=== PATIENT | male | born 1965 | race Caucasian/White ===

== ENCOUNTER 2017-12-24 12:49 | Inpatient (IN) | payer OTHER ==
[2017-12-24 13:53] VITALS: BMI 25.6
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
[2017-12-24] MEDS ORDERED: hydrOXYzine PAMOATE 50 MG CAPSULE (FP) PO PRN (17:16)
[2017-12-24] MEDS ORDERED: MENTHOL/PHENOL 1 EACH UD MM PRN (17:16)
[2017-12-24] MEDS ORDERED: NICOTINE POLACRILEX 2 MG GUM BC PRN (17:16)
[2017-12-24] MEDS ORDERED: MAG HYDROX/AL HYDROX/SIMETH 30 ML UNIT-DOSE CUP PO PRN (17:16)
[2017-12-24] MEDS ORDERED: P-EPHED 60MG/TRIPROLIDI 2.5MG TABLET PO PRN (17:16)
[2017-12-24] MEDS ORDERED: MAGNESIUM CITRATE 300 ML BOTTLE PO PRN (17:16)
[2017-12-24] MEDS ORDERED: guaiFENesin/D-METHORPHAN HB 10 ML UNIT-DOSE CUPS PO PRN (17:16)
[2017-12-24] MEDS ORDERED: chlordiazePOXIDE HCL 25 MG CAPSULE PO ONE (17:16)
[2017-12-24] MEDS ORDERED: chlordiazePOXIDE HCL 25 MG CAPSULE PO PRN (17:16)
[2017-12-24] MEDS ORDERED: IBUPROFEN 400 MG TABLET (FP) PO PRN (17:16)
[2017-12-24] MEDS ORDERED: ACETAMINOPHEN 325 MG TABLET (FP) PO PRN (17:16)
[2017-12-24] MEDS ORDERED: MAGNESIUM HYDROX 2400MG/30ML ORAL SUSPENSION 30 ML CUP PO PRN (17:16)
[2017-12-24] MEDS ORDERED: LOPERAMIDE HCL 2 MG CAPSULE PO PRN (17:16)
[2017-12-24] MEDS ORDERED: ALBUTEROL SO4 2.5/IPRATROPIUM 0.5 INH SOL 3 ML VIAL.NEB. NEB PRN (17:27)
[2017-12-24] MEDS ORDERED: MELATONIN 5 MG TABLETS PO PRN (22:00)
[2017-12-24] MEDS: THIAMINE HCL 100 MG TABLET (FP) PO SCH (22:36)
[2017-12-24] MEDS: ALBUTEROL SO4 18 GM HFA INHALER IH SCH (22:36)
[2017-12-24] MEDS: chlordiazePOXIDE HCL 25 MG CAPSULE PO SCH (22:36)
[2017-12-25 03:32] LABS: URINE APPEARANCE CLEAR; URINE BILIRUBIN NEGATIVE (<2.0 mg/dL); URINE BLOOD 2+ (NEGATIVE); URINE COLOR DKYELLOW; URINE GLUCOSE (UA) NEGATIVE (NEGATIVE); URINE KETONE TRACE (NEGATIVE); URINE LEUK ESTERASE NEGATIVE (NEGATIVE); URINE NITRITE NEGATIVE (NEGATIVE); URINE PROTEIN NEGATIVE (NEGATIVE)
[2017-12-25 03:45] LABS: EPI CELLS RARE /HPF (FEW); URINE HYALINE CAST 7 /lpf; URINE MUCUS MANY
[2017-12-25] MEDS: chlordiazePOXIDE HCL 25 MG CAPSULE PO SCH ×4 (06:06→22:04)
[2017-12-25] MEDS: ALBUTEROL SO4 18 GM HFA INHALER IH SCH ×4 (10:11→22:05)
[2017-12-25] MEDS: NICOTINE 14 MG/24 HOURS TOPICAL PATCH TD SCH (10:11)
[2017-12-25] MEDS: PRENATAL VITAMINS W/ FOLIC ACID TABLET (FP) PO SCH (10:11)
[2017-12-25 11:16] LABS: HEMATOCRIT 46.5 % (35.4-49); MCH 31.3 pg (25.7-33.7); MCHC 34.4 g/dl (32.0-35.9); MEAN PLT VOLUME 8.4 fl (7.5-11.1); PLATELET COUNT 169 K/MM3 (134-434); RBC 5.11 M/mm3 (4.00-5.60); RDW 13.8 % (11.9-15.9); WHITE BLOOD COUNT 6.4 K/mm3 (4.0-10.0)
[2017-12-25 11:35] LABS: CHLORIDE 111 mmol/L (98-107); POTASSIUM 3.7 mmol/L (3.5-5.1); SGOT/AST 41 U/L (15-37); SGPT/ALT 36 U/L (12-78); SODIUM 136 mmol/L (136-145)
[2017-12-25 11:39] LABS: ALBUMIN 3.5 g/dl (3.4-5.0); ALK PHOS 166 U/L (45-117); ANION GAP -1 (8-16); BILIRUBIN,TOTAL 0.3 mg/dL (0.2-1.0); BLOOD UREA NITROGEN 19 mg/dL (7-18); CALCIUM 8.4 mg/dL (8.5-10.1); CO2 26 mmol/L (21-32); CREATININE 0.9 mg/dL (0.7-1.3); GLUCOSE,RANDOM 97 mg/dL (74-106)
[2017-12-25] MEDS ORDERED: METHADONE HCL 10 MG TABLET PO SCH (12:15)
[2017-12-25] MEDS ORDERED: TRIMETHOBENZAMIDE HCL 200MG/2ML INJ IM ONE (12:45)
[2017-12-25] MEDS ORDERED: cloNIDine HCL 0.1 MG TABLET PO ONE (12:45)
--- NOTE | 2017-12-25 14:38 | PN ---
S CIWA - CIWA Score Nausea/Vomitin Muscle Tremors: 2 Anxiety: 5 Agitation: 4-Moderately Restless Paroxysmal Sweats: 2 Orientation: 0-Oriented Tacttile Disturbances: 2-Mild Itch/Numbness/Burn Auditory Disturbances: 0-None Visual Disturbances: 0-None Headache: 0-None Present CIWA-Ar Total Score: 20 BHS Progress Note (SOAP) Subjective: Tremors, Anxious, Body Aches, Sweating, Vomiting. Objective: PATIENT A & O X 3, OBSERVED AMBULATING ON UNIT. NO ACUTE DISTRESS. 12/25/17 14:35 Vital Signs Temperature 97.9 F 12/25/17 06:16 Pulse Rate 62 12/25/17 06:16 Respiratory Rate 18 12/25/17 06:30 Blood Pressure 130/72 12/25/17 06:16 O2 Sat by Pulse Oximetry (%) Laboratory Tests 12/25/17 12/25/17 12/25/17 00:05 08:00 08:00 WBC 6.4 RBC 5.11 D Hgb 16.0 D Hct 46.5 D MCV 91.0 MCH 31.3 MCHC 34.4 RDW 13.8 Plt Count 169 D MPV 8.4 Sodium 136 Potassium 3.7 Chloride 111 H Carbon Dioxide 26 Anion Gap -1 L BUN 19 H Creatinine 0.9 D Creat Clearance w eGFR > 60 Random Glucose 97 Calcium 8.4 L Total Bilirubin 0.3 AST 41 H ALT 36 Alkaline Phosphatase 166 H D Total Protein 7.0 Albumin 3.5 Urine Color Dkyellow Urine Appearance Clear Urine pH 5.0 Ur Specific [place] 1.024 Urine Protein Negative Urine Glucose (UA) Negative Urine Ketones Trace H Urine Blood 2+ H Urine Nitrite Negative Urine Bilirubin Negative Urine Urobilinogen 2.0 Ur Leukocyte Esterase Negative Urine WBC (Auto) 0 Urine RBC (Auto) 233 Ur Epithelial Cells Rare Hyaline Casts 7 Urine Mucus Many RPR Titer 12/25/17 08:00 WBC RBC Hgb Hct MCV MCH MCHC RDW Plt Count MPV Sodium Potassium Chloride Carbon Dioxide Anion Gap BUN Creatinine Creat Clearance w eGFR Random Glucose Calcium Total Bilirubin AST ALT Alkaline Phosphatase Total Protein Albumin Urine Color Urine Appearance Urine pH Ur Specific [place] Urine Protein Urine Glucose (UA) Urine Ketones Urine Blood Urine Nitrite Urine Bilirubin Urine Urobilinogen Ur Leukocyte Esterase Urine WBC (Auto) Urine RBC (Auto) Ur Epithelial Cells Hyaline Casts Urine Mucus RPR Titer Nonreactive LABS NOTED. Assessment: 12/25/17 14:35 WITHDRAWAL SYMPTOMS. Plan: CONTINUE DETOX. INCREASE DAILY PO FLUID INTAKE. PRN TIGAN IM FOR NAUSEA / VOMITING. REPEAT UA FOR ADMISSION ABNORMALITIES.
[2017-12-25] MEDS ORDERED: METHADONE HCL 10 MG TABLET PO ONE (14:45)
--- NOTE | 2017-12-25 14:46 | CONSULT ---
[facility] Psychiatric Consult - Data Date of interview: 12/25/17 Admission source: [facility] Identifying data: Readmission to [facility] for this 52 y/o male seeking detox treatment on for heroin,cocaine,cannabis,alcohol and benzodiazepine dependence.Patient is single without children,homeless,uneployed and supported on Public Assistance. Substance Abuse History: Confirmed by patient in this session.Details in current [facility] report : Smoking history: Current every day smoker. Have you smoked in the past 12 months: Yes. Aproximately how many cigarettes per day: 20. Hx Chewing Tobacco Use: No. Initiated information on smoking cessation: Yes. 'Breaking Loose' booklet given: 12/24/17. - Substance & Tx. History. Hx Alcohol Use: Yes. Hx Substance Use: Yes. Substance Use Type: Alcohol, Heroin, Marijuana, Tranquilizers. Hx Substance Use Treatment: Yes ([facility] 2 months agoi ). - Substances Abused. Alcohol. Route: Oral. Frequency: Daily. Amount used: liquor- 1 pint, beer- 1 six pack. Age of first use: 19. Date of Last Use: 12/24/17. Heroin. Route: Injection. Frequency: Daily. Amount used: 8 bags. Age of first use: 12. Date of Last Use: 12/23/17 Medical History: Bronchial asthma. Psychiatric History: No history of psychiatric hospitalizations.Patient is [facility] [place].Mr Sutton denies suicide attempts. Physical/Sexual Abuse/Trauma History: Patient denies. Additional Comment: Urine Drug Screen Results: THC-Marijuana, ANNA-Cocaine, OPI- Opiates, BZO-Benzodiazepines, MTD-Methadone.Noted. Mental Status Exam - Mental Status Exam Alert and Oriented to: Time, Place, Person Cognitive Function: Grossly Intact Patient Appearance: Unkempt, Disheveled Mood: Nervous, Withdrawn Affect: Mood Congruent Patient Behavior: Cooperative Speech Pattern: Clear Voice Loudness: Normal Thought Process: Goal Oriented Thought Disorder: Not Present Hallucinations: Denies Suicidal Ideation: Denies Homicidal Ideation: Denies Insight/Judgement: Poor Sleep: Poorly, Difficulty falling asleep Appetite: Good Gait/Station: Other (not observed ; patient did not leave his bed for entire interview) Psychiatric Findings - Problem List ([place] 1, 2,3) (1) Opioid dependence on agonist therapy Current Visit: Yes Status: Acute (2) Alcohol dependence with withdrawal Current Visit: Yes Status: Acute Qualifiers: Complication of substance-induced condition: uncomplicated Qualified Code(s ): F10.230 - Alcohol dependence with withdrawal, uncomplicated (3) Marijuana dependence Current Visit: Yes Status: Acute (4) Sedative, hypnotic or anxiolytic dependence with withdrawal, unspecified Current Visit: Yes Status: Acute (5) Cocaine dependence Current Visit: Yes Status: Acute (6) Nicotine dependence Current Visit: Yes Status: Acute (7) Insomnia Current Visit: Yes Status: Acute - Initial Treatment Plan Initial Treatment Plan: Psychoeducation.Detoxification.Sleep hygiene.Seroquel 50 mg po hs (patient's request).Side effects/benefits discussed.Mr Sutton insists on resuming seroquel for insomnia.Observation.
--- NOTE | 2017-12-25 18:27 | EKG ---
Test Reason : Blood Pressure : / mmHG Vent. Rate : 062 BPM Atrial Rate : 062 BPM P-R Int : 174 ms QRS Dur : 100 ms QT Int : 400 ms P-R-T Axes : 069 -42 041 degrees QTc Int : 406 ms NORMAL SINUS RHYTHM LEFT AXIS DEVIATION INCOMPLETE RIGHT BUNDLE BRANCH BLOCK ABNORMAL ECG NO PREVIOUS ECGS AVAILABLE Confirmed by MD DIAMOND, KLAUS ([id number]) on 12/25/2017 6:27:21 PM Referred By: Confirmed By:KLAUS FIELDS MD
[2017-12-25] MEDS ORDERED: TRIMETHOBENZAMIDE HCL 200MG/2ML INJ IM PRN (19:00)
[2017-12-25] MEDS: THIAMINE HCL 100 MG TABLET (FP) PO SCH (22:03)
[2017-12-25] MEDS: QUEtiapine FUMARATE 50 MG TABLET PO SCH (22:03)
[2017-12-26] MEDS ORDERED: METHADONE HCL 10 MG TABLET ONE (04:54)
[2017-12-26] MEDS ORDERED: METHADONE HCL 40 MG DISPERSABLE TABLET ONE (04:55)
[2017-12-26] MEDS: chlordiazePOXIDE HCL 25 MG CAPSULE PO SCH ×3 (05:51→19:42)
[2017-12-26] MEDS: METHADONE 40 MG, METHADONE 10 MG PO SCH (05:51)
[2017-12-26] MEDS ORDERED: METHADONE HCL 10 MG TABLET PO SCH (06:00)
[2017-12-26] MEDS: PRENATAL VITAMINS W/ FOLIC ACID TABLET (FP) PO SCH (10:16)
[2017-12-26] MEDS: ALBUTEROL SO4 18 GM HFA INHALER IH SCH ×4 (10:17→21:20)
[2017-12-26] MEDS: NICOTINE 14 MG/24 HOURS TOPICAL PATCH TD SCH (10:17)
--- NOTE | 2017-12-26 12:13 | PN ---
S CIWA - CIWA Score Nausea/Vomitin-No Nausea/No Vomiting Muscle Tremors: 4-Moderate,w/Arms Extend Anxiety: 3 Agitation: 4-Moderately Restless Paroxysmal Sweats: 3 Orientation: 0-Oriented Tacttile Disturbances: 0-None Auditory Disturbances: 0-None Visual Disturbances: 0-None Headache: 0-None Present CIWA-Ar Total Score: 14 BHS Progress Note (SOAP) Subjective: interrupted sleep i want the seroquel increased sweats chills body aches Objective: 12/26/17 12:12 Vital Signs Temperature 98.6 F 12/26/17 11:12 Pulse Rate 74 12/26/17 11:12 Respiratory Rate 20 12/26/17 11:12 Blood Pressure 105/70 12/26/17 11:12 O2 Sat by Pulse Oximetry (%) Laboratory Tests 12/25/17 12/25/17 12/25/17 00:05 08:00 08:00 WBC 6.4 RBC 5.11 D Hgb 16.0 D Hct 46.5 D MCV 91.0 MCH 31.3 MCHC 34.4 RDW 13.8 Plt Count 169 D MPV 8.4 Sodium 136 Potassium 3.7 Chloride 111 H Carbon Dioxide 26 Anion Gap -1 L BUN 19 H Creatinine 0.9 D Creat Clearance w eGFR > 60 Random Glucose 97 Calcium 8.4 L Total Bilirubin 0.3 AST 41 H ALT 36 Alkaline Phosphatase 166 H D Total Protein 7.0 Albumin 3.5 Urine Color Dkyellow Urine Appearance Clear Urine pH 5.0 Ur Specific [place] 1.024 Urine Protein Negative Urine Glucose (UA) Negative Urine Ketones Trace H Urine Blood 2+ H Urine Nitrite Negative Urine Bilirubin Negative Urine Urobilinogen 2.0 Ur Leukocyte Esterase Negative Urine WBC (Auto) 0 Urine RBC (Auto) 233 Ur Epithelial Cells Rare Hyaline Casts 7 Urine Mucus Many RPR Titer 12/25/17 08:00 WBC RBC Hgb Hct MCV MCH MCHC RDW Plt Count MPV Sodium Potassium Chloride Carbon Dioxide Anion Gap BUN Creatinine Creat Clearance w eGFR Random Glucose Calcium Total Bilirubin AST ALT Alkaline Phosphatase Total Protein Albumin Urine Color Urine Appearance Urine pH Ur Specific [place] Urine Protein Urine Glucose (UA) Urine Ketones Urine Blood Urine Nitrite Urine Bilirubin Urine Urobilinogen Ur Leukocyte Esterase Urine WBC (Auto) Urine RBC (Auto) Ur Epithelial Cells Hyaline Casts Urine Mucus RPR Titer Nonreactive repeat u/a pt denies s/s of UTI aaox3 ambulating no acute distress Assessment: 12/26/17 12:13 withdrawal sx Plan: continue detox increase fluids f/u pending labs psych ordered for seroquel increase if possible
[2017-12-26] MEDS: QUEtiapine FUMARATE 50 MG TABLET PO SCH (22:15)
[2017-12-26] MEDS: chlordiazePOXIDE 5 MG CAPSULE PO SCH (22:15)
[2017-12-26] MEDS: THIAMINE HCL 100 MG TABLET (FP) PO SCH (22:15)
[2017-12-27] MEDS ORDERED: METHADONE HCL 40 MG DISPERSABLE TABLET ONE (04:42)
[2017-12-27] MEDS ORDERED: METHADONE HCL 10 MG TABLET ONE (04:42)
[2017-12-27] MEDS: chlordiazePOXIDE 5 MG CAPSULE PO SCH ×3 (05:49→18:15)
[2017-12-27] MEDS: METHADONE 40 MG, METHADONE 10 MG PO SCH (05:49)
[2017-12-27] MEDS: ALBUTEROL SO4 18 GM HFA INHALER IH SCH ×3 (09:42→18:15)
[2017-12-27] MEDS: NICOTINE 14 MG/24 HOURS TOPICAL PATCH TD SCH (10:22)
[2017-12-27] MEDS: PRENATAL VITAMINS W/ FOLIC ACID TABLET (FP) PO SCH (10:22)
[2017-12-27] MEDS ORDERED: NAPROXEN 250 MG TABLET (FP) PO SCH (12:30)
--- NOTE | 2017-12-27 15:11 | PN ---
Psychiatric Progress Note Vital Signs: Vital Signs Period Temp Pulse Resp BP Sys/Cardenas Pulse Ox Last 24 Hr 96.7 F-97.9 F 67-78 18-19 104-129/55-72 Date of Session: 12/27/17 Chief Complaint:: " I cannot sleep at night.I need more seroquel." HPI: psychiatric follow up is sought to address complaint of refractory insomnia.Otherwise this hospital course is uneventful. ROS: Unremarkable. Current Medications: Active Medications Generic Name Dose Route Start Last Admin Trade Name Freq PRN Reason Stop Dose Admin Acetaminophen 650 mg 12/24/17 17:16 Tylenol - PO Q4H PRN FEVER Al Hydroxide/Mg Hydroxide 30 ml 12/24/17 17:16 Mylanta Oral Suspension - PO Q6H PRN DYSPEPSIA Albuterol Sulfate 2 puff 12/24/17 20:00 12/27/17 12:21 Ventolin Hfa Inhaler - IH Not Given RQID MARY Albuterol/Ipratropium 1 amp 12/24/17 17:27 Duoneb - NEB Q6H PRN SHORTNESS OF BREATH Chlordiazepoxide HCl 15 mg 12/26/17 23:00 12/27/17 10:22 Librium - PO 12/27/17 17:01 15 mg [id number] MARY Administration Chlordiazepoxide HCl 25 mg 12/24/17 17:16 12/24/17 20:01 Librium - PO 12/27/17 17:15 25 mg Q4H PRN Administration WITHDRAWAL(CONT SUBST) Chlordiazepoxide HCl 10 mg 12/27/17 23:00 Librium - PO 12/28/17 17:01 [id number] MARY Eucalyptus/Menthol/Phenol/Sorbitol 1 each 12/24/17 17:16 Cepastat Lozenge - MM Q4H PRN SORE THROAT Guaifenesin 10 ml 12/24/17 17:16 Robitussin Dm - PO Q6H PRN COUGH Hydroxyzine Pamoate 50 mg 12/24/17 17:16 Vistaril - PO Q4H PRN AGITATION Loperamide HCl 4 mg 12/24/17 17:16 Imodium - PO Q6H PRN DIARRHEA Magnesium Citrate 300 ml 12/24/17 17:16 Citroma - PO Q48H PRN CONSTIPATION Magnesium Hydroxide 30 ml 12/24/17 17:16 Milk Of Magnesia - PO DAILY PRN CONSTIPATION Melatonin 5 mg 12/24/17 22:00 Melatonin PO HS PRN INSOMNIA Methadone HCl 40 mg/ Methadone 50 mg 12/26/17 06:00 12/27/17 05:49 HCl 10 mg PO 12/31/17 06:01 50 mg DAILY@0600 MARY Administration Naproxen 250 mg 12/27/17 12:30 12/27/17 14:16 Naprosyn - PO 250 mg BID MARY Administration Nicotine 14 mg 12/25/17 10:00 12/27/17 10:22 Nicoderm Patch - TD Not Given DAILY MARY Nicotine Polacrilex 2 mg 12/24/17 17:16 Nicorette Gum - BC Q2H PRN NICOTINE REPLACEMENT RX Multivit/Folic Acid/Iron 1 tab 12/25/17 10:00 12/27/17 10:22 Vitamins (Sjr) - PO 1 tab DAILY MARY Administration Pseudoephedrine/Triprolidine 1 combo 12/24/17 17:16 Actifed - PO TID PRN NASAL CONGESTION Quetiapine Fumarate 50 mg 12/25/17 22:00 12/26/17 22:15 Seroquel - PO 50 mg HS MARY Administration Thiamine HCl 100 mg 12/24/17 22:00 12/26/17 22:15 Vitamin B1 - PO 100 mg HS MARY Administration Trimethobenzamide HCl 200 mg 12/25/17 19:00 Tigan Injection - IM Q8H PRN NAUSEA Medication(s) Change(s): Seroquel is raised to 100 mg po hs.Side effects/ benefits are revisited with patient.Mr Sutton agrees with this plan of care. Current Side Effect: No Lab tests ordered: No Lab tests reviewed: Yes Provider note:: Chart reviewed.Met with the patient.Complaint of insomnia is confirmed.Patient is made aware of benefits of sleep hygiene and he is encouraged to join activities + groups organized on the unit throughout the day.Mr Sutton agrees.Stable mental status. Total face to face time:: 25 Mental Status Exam - Mental Status Exam Alert and Oriented to: Time, Place, Person Cognitive Function: Good Patient Appearance: Well Groomed Mood: Withdrawn, Hopeful Affect: Appropriate, Normal Range Patient Behavior: Fatigued, Cooperative Speech Pattern: Clear, Appropriate Voice Loudness: Normal Thought Process: Goal Oriented Thought Disorder: Not Present Hallucinations: Denies Suicidal Ideation: Denies Homicidal Ideation: Denies Insight/Judgement: Fair Sleep: Poorly, Difficulty falling asleep Appetite: Good Muscle strength/Tone: Normal Gait/Station: Normal Psychiatric Treatment Plan - Problem List (1) Insomnia Current Visit: Yes (2) Opioid dependence on agonist therapy Current Visit: Yes (3) Alcohol dependence with withdrawal Current Visit: Yes Qualifiers: Complication of substance-induced condition: uncomplicated Qualified Code(s ): F10.230 - Alcohol dependence with withdrawal, uncomplicated (4) Marijuana dependence Current Visit: Yes (5) Sedative, hypnotic or anxiolytic dependence with withdrawal, unspecified Current Visit: Yes (6) Cocaine dependence Current Visit: Yes (7) Nicotine dependence Current Visit: Yes
--- NOTE | 2017-12-27 16:55 | PN ---
[facility] Progress Note (SOAP) Subjective: Interrupted Sleep, Anxious. Patient reports swelling and discomfort in fingers of left hand since earlier this AM. Patient denies any history of recent traumatic injury to right wrist / hand. Objective: PATIENT A & O X 3, OBSERVED AMBULATING ON UNIT. NO ACUTE DISTRESS. SLIGHT SWELLING NOTED IN FINGER OF RIGHT HAND. ROM OF FINGERS LIMITED. NO WOUND OR UNUSUAL DISCHARGE NOTED. 12/27/17 16:51 Vital Signs Temperature 97.5 F L 12/27/17 13:30 Pulse Rate 74 12/27/17 13:30 Respiratory Rate 18 12/27/17 13:30 Blood Pressure 110/55 12/27/17 13:30 O2 Sat by Pulse Oximetry (%) Laboratory Tests 12/25/17 12/25/17 12/25/17 00:05 08:00 08:00 WBC 6.4 RBC 5.11 D Hgb 16.0 D Hct 46.5 D MCV 91.0 MCH 31.3 MCHC 34.4 RDW 13.8 Plt Count 169 D MPV 8.4 Sodium 136 Potassium 3.7 Chloride 111 H Carbon Dioxide 26 Anion Gap -1 L BUN 19 H Creatinine 0.9 D Creat Clearance w eGFR > 60 Random Glucose 97 Calcium 8.4 L Total Bilirubin 0.3 AST 41 H ALT 36 Alkaline Phosphatase 166 H D Total Protein 7.0 Albumin 3.5 Urine Color Dkyellow Urine Appearance Clear Urine pH 5.0 Ur Specific [place] 1.024 Urine Protein Negative Urine Glucose (UA) Negative Urine Ketones Trace H Urine Blood 2+ H Urine Nitrite Negative Urine Bilirubin Negative Urine Urobilinogen 2.0 Ur Leukocyte Esterase Negative Urine WBC (Auto) 0 Urine RBC (Auto) 233 Ur Epithelial Cells Rare Hyaline Casts 7 Urine Mucus Many RPR Titer 12/25/17 08:00 WBC RBC Hgb Hct MCV MCH MCHC RDW Plt Count MPV Sodium Potassium Chloride Carbon Dioxide Anion Gap BUN Creatinine Creat Clearance w eGFR Random Glucose Calcium Total Bilirubin AST ALT Alkaline Phosphatase Total Protein Albumin Urine Color Urine Appearance Urine pH Ur Specific [place] Urine Protein Urine Glucose (UA) Urine Ketones Urine Blood Urine Nitrite Urine Bilirubin Urine Urobilinogen Ur Leukocyte Esterase Urine WBC (Auto) Urine RBC (Auto) Ur Epithelial Cells Hyaline Casts Urine Mucus RPR Titer Nonreactive LABS NOTED. REPEAT UA RESULTS PENDING. 12/27/17 16:54 Assessment: 04/02/18 16:52 WITHDRAWAL SYMPTOMS. Plan: CONTINUE DETOX. X-RAY OF RIGHT HAND ORDERED - RESULTS PENDING AT THIS TIME. NAPROXEN BID FOR HAND PAIN / SWELLING. ADVISE PATIENT TO KEEP HAND ELEVATED WHILE LYING IN BED. INCREASE DAILY PO FLUID INTAKE.
[2017-12-27 17:28] VITALS: BP 106/53; PULSE 67; TEMP 98.7
[2017-12-27] MEDS ORDERED: QUEtiapine FUMARATE 100 MG TABLET (FP) PO SCH (22:00)
[2017-12-27] MEDS ORDERED: chlordiazePOXIDE HCL 10 MG CAPSULE PO SCH (23:00)
== END 2017-12-27 18:24 | disposition other institution (70) | DRG 773 ==
LOC: YASAS 12:49 → Y3N 17:55
PROVIDERS: ADMIT Internal Medicine; ATTEND Internal Medicine
PROC: HZ2ZZZZ Detoxification Services for Substance Abuse Treatment (ICD-10-PCS; principal; 2017-12-24)
DX: F11.20 Opioid dependence, uncomplicated (principal); F13.230 Sedative, hypnotic or anxiolytic dependence with withdrawal, uncomplicated; F10.230 Alcohol dependence with withdrawal, uncomplicated; F14.20 Cocaine dependence, uncomplicated; F12.20 Cannabis dependence, uncomplicated; F32.9 Major depressive disorder, single episode, unspecified; G47.00 Insomnia, unspecified; E87.6 Hypokalemia; J45.909 Unspecified asthma, uncomplicated; R63.4 Abnormal weight loss; Z68.25 Body mass index [BMI] 25.0-25.9, adult
CPT/HCPCS: 36415; 71045-TC-FY; 73130-TC-LR-FY; 80053; 81003; 81015; 85027; 86593; 93005; 93010

== ENCOUNTER 2017-12-27 18:36 | Inpatient (IN) | payer OTHER ==
[2017-12-27] MEDS ORDERED: guaiFENesin/D-METHORPHAN HB 10 ML UNIT-DOSE CUPS PO PRN (18:47)
[2017-12-27] MEDS ORDERED: P-EPHED 60MG/TRIPROLIDI 2.5MG TABLET PO PRN (18:47)
[2017-12-27] MEDS ORDERED: MAGNESIUM HYDROX 2400MG/30ML ORAL SUSPENSION 30 ML CUP PO PRN (18:47)
[2017-12-27] MEDS ORDERED: MAG HYDROX/AL HYDROX/SIMETH 30 ML UNIT-DOSE CUP PO PRN (18:47)
[2017-12-27] MEDS ORDERED: LOPERAMIDE HCL 2 MG CAPSULE PO PRN (18:47)
[2017-12-27] MEDS ORDERED: MENTHOL/PHENOL 1 EACH UD MM PRN (18:47)
[2017-12-27] MEDS ORDERED: MAGNESIUM CITRATE 300 ML BOTTLE PO PRN (18:47)
--- NOTE | 2017-12-27 18:48 | HP ---
[facility] Rehab Assess/Revision - Admission History Admitted to Rehab from: [facility] Date of Admission to Rehab: 12/27/17 - Findings Detox History & Physical reviewed: Yes Concur with findings: Yes Inpatient Rehab Admission - Initial Determination Are CD services needed?: Yes Free of communicable disease: Yes Not in need of hospitalization: Yes - Rehab Admission Criteria Previous failed treatment: Yes Poor recovery environment: Yes Comorbidities: Yes Lacks judgement: Yes Patient is meeting Inpatient Rehab admission criteria:: Yes
--- NOTE | 2017-12-27 19:34 | PN ---
S Progress Note Note: called by nurse to enter seroquel order, chart reviewed, dr. Medina notes appreciated, order placed, to be evaluated in am.
[2017-12-27] MEDS: THIAMINE HCL 100 MG TABLET (FP) PO SCH (21:45)
[2017-12-27] MEDS ORDERED: QUEtiapine FUMARATE 50 MG TABLET PO SCH (22:00)
[2017-12-27] MEDS ORDERED: MELATONIN 5 MG TABLETS PO PRN (22:00)
[2017-12-28] MEDS ORDERED: METHADONE HCL 10 MG TABLET PO SCH (06:00)
[2017-12-28] MEDS: METHADONE 40 MG, METHADONE 10 MG PO SCH (06:35)
[2017-12-28] MEDS ORDERED: METHADONE HCL 40 MG DISPERSABLE TABLET ONE (06:35)
[2017-12-28] MEDS ORDERED: METHADONE HCL 10 MG TABLET ONE (06:35)
[2017-12-28] MEDS: PRENATAL VITAMINS W/ FOLIC ACID TABLET (FP) PO SCH (10:18)
[2017-12-28] MEDS: NICOTINE 21 MG/24 HOURS TOPICAL PATCH TD SCH (10:19)
--- NOTE | 2017-12-28 15:12 | HP ---
Psychiatrist Admission - Data Date of interview: 12/28/17 Admission source: 3N Identifying data: This is the first 5n inpatient rehabilitation admission for this 52 year old male who is single , unemployed and supported on PA, currently homeless. Medical History: Bronchial asthma,smokes cigarettes 20 a day. On MMTP 50 mg daily. Psychiatric History: Patient reports no history of psychiatric hospitalizations , but states on Seroquel for insomnia and depression, was seen by and continue medications. Physical/Sexual Abuse/Trauma History: Patient denies history of abuse. Vital Signs: Vital Signs - 24 hr 12/27/17 12/28/17 12/28/17 18:51 00:30 03:30 Temperature 98.2 F Pulse Rate 82 Respiratory 18 18 18 Rate Blood Pressure 113/79 12/28/17 07:30 Temperature 97.6 F Pulse Rate 70 Respiratory 17 Rate Blood Pressure 113/74 Allergies/Adverse Reactions: Allergies Allergy/AdvReac Type Severity Reaction Status Date / Time No Known Allergies Allergy Verified 12/24/17 16:35 Date of last physical exam: 12/24/17 Concur with the findings of this exam: Yes - Substance Abuse/Tx History Hx Alcohol Use: Yes (liqour 1 pint, beer 1-6 packs) Hx Substance Use: Yes (K2) Substance Use Type: Heroin (injecting 8 -15 bags), Opiates (percocet 4 daily ), Tranquilizers (xanax up to 6-8 mg daily ) Hx Substance Use Treatment: Yes (promesa 2 months ago) Mental Status Exam - Mental Status Exam Alert and Oriented to: Time, Place, Person Cognitive Function: Grossly Intact Patient Appearance: Well Groomed Mood: Apathetic, Sad, Anxious Affect: Blunted, Constricted Patient Behavior: Appropriate, Cooperative Speech Pattern: Clear, Appropriate Voice Loudness: Normal Thought Process: Goal Oriented Thought Disorder: Not Present Hallucinations: Denies Suicidal Ideation: Denies Homicidal Ideation: Denies Insight/Judgement: Fair Sleep: Difficulty falling asleep Appetite: Fair Muscle strength/Tone: Normal Psychiatric Findings - Problem List ([place] 1, 2,3) (1) Sedative hypnotic or anxiolytic dependence Current Visit: Yes Status: Acute (2) Mood disorder Current Visit: Yes Status: Acute (3) Cocaine dependence Current Visit: No Status: Acute (4) Heroin dependence Current Visit: No Status: Acute (5) Marijuana dependence Current Visit: No Status: Acute (6) Nicotine dependence Current Visit: No Status: Acute (7) Opioid dependence on agonist therapy Current Visit: No Status: Acute (8) Insomnia Current Visit: No Status: Acute - Initial Treatment Plan Initial Treatment Plan: will increase Seroquel 100 mg po hs(ordered 50 mg po hs n 12/27/17), monitor progress as needed.
[2017-12-28] MEDS: THIAMINE HCL 100 MG TABLET (FP) PO SCH (21:23)
[2017-12-28] MEDS: QUEtiapine FUMARATE 100 MG TABLET (FP) PO SCH (21:23)
[2017-12-29] MEDS ORDERED: METHADONE HCL 10 MG TABLET ONE (05:22)
[2017-12-29] MEDS ORDERED: METHADONE HCL 40 MG DISPERSABLE TABLET ONE (05:23)
[2017-12-29] MEDS: METHADONE 40 MG, METHADONE 10 MG PO SCH (06:33)
[2017-12-29] MEDS: PRENATAL VITAMINS W/ FOLIC ACID TABLET (FP) PO SCH (10:25)
[2017-12-29] MEDS: hydrOXYzine PAMOATE 50 MG CAPSULE (FP) PO PRN (10:26)
[2017-12-29] MEDS: NICOTINE POLACRILEX 2 MG GUM BUC PRN (10:27)
[2017-12-29] MEDS: NICOTINE 21 MG/24 HOURS TOPICAL PATCH TD SCH (10:56)
[2017-12-29] MEDS: ACETAMINOPHEN 325 MG TABLET (FP) PO PRN (18:16)
[2017-12-29] MEDS: THIAMINE HCL 100 MG TABLET (FP) PO SCH (21:30)
[2017-12-29] MEDS: QUEtiapine FUMARATE 100 MG TABLET (FP) PO SCH (21:30)
[2017-12-30] MEDS ORDERED: METHADONE HCL 10 MG TABLET ONE (03:21)
[2017-12-30] MEDS ORDERED: METHADONE HCL 40 MG DISPERSABLE TABLET ONE (03:21)
[2017-12-30] MEDS: METHADONE 40 MG, METHADONE 10 MG PO SCH (06:52)
[2017-12-30] MEDS: PRENATAL VITAMINS W/ FOLIC ACID TABLET (FP) PO SCH (10:15)
[2017-12-30] MEDS: NICOTINE 21 MG/24 HOURS TOPICAL PATCH TD SCH (10:16)
[2017-12-30] MEDS: hydrOXYzine PAMOATE 50 MG CAPSULE (FP) PO PRN (10:17)
[2017-12-30] MEDS: ACETAMINOPHEN 325 MG TABLET (FP) PO PRN ×2 (14:18→18:24)
[2017-12-30] MEDS: IBUPROFEN 400 MG TABLET (FP) PO PRN (21:43)
[2017-12-30] MEDS: QUEtiapine FUMARATE 100 MG TABLET (FP) PO SCH (21:43)
[2017-12-30] MEDS: THIAMINE HCL 100 MG TABLET (FP) PO SCH (21:43)
[2017-12-31] MEDS ORDERED: METHADONE HCL 40 MG DISPERSABLE TABLET ONE (05:26)
[2017-12-31] MEDS ORDERED: METHADONE HCL 10 MG TABLET ONE (05:26)
[2017-12-31] MEDS: METHADONE 40 MG, METHADONE 10 MG PO SCH (06:05)
[2017-12-31] MEDS: PRENATAL VITAMINS W/ FOLIC ACID TABLET (FP) PO SCH (09:36)
[2017-12-31] MEDS: NICOTINE 21 MG/24 HOURS TOPICAL PATCH TD SCH (09:36)
--- NOTE | 2017-12-31 14:27 | PN ---
S Progress Note Note: Patient presents with c/o headache, level 8/10, light sensitivity with no relief from APAP and Ibu. Pt also requesting ensure and to change methadone time to 10am daily. Pt denies CP, SOB and Dizziness. Vital Signs Temperature 98.5 F 12/31/17 07:16 Pulse Rate 61 12/31/17 07:16 Respiratory Rate 18 12/31/17 07:16 Blood Pressure 103/61 12/31/17 07:16 O2 Sat by Pulse Oximetry (%) Obj: Skin warm and dry General: alert and oriented x 3. Neuro: non-focal, CN 1-X11 grossly intact. Car: S1S2 Resp: CTA BL Migraine headaches Will order Topimax 25mg BID and monitor clinically Ensure ordered Methadone timing changed to 10am
--- NOTE | 2017-12-31 14:40 | PN ---
[facility] Progress Note Note: UA reviewed. Negative for Leucocytes, nitrates, +blood. Pt denies dysuria, urgency and frequency. Will repeat UA in am .
[2017-12-31] MEDS: ACETAMINOPHEN 325 MG TABLET (FP) PO PRN (15:15)
[2017-12-31] MEDS ORDERED: TOPIRAMATE 25 MG TABLET (FP) PO ONE (16:45)
[2017-12-31] MEDS: TOPIRAMATE 25 MG TABLET (FP) PO SCH (21:27)
[2017-12-31] MEDS: QUEtiapine FUMARATE 100 MG TABLET (FP) PO SCH (21:27)
[2017-12-31] MEDS: THIAMINE HCL 100 MG TABLET (FP) PO SCH (21:27)
[2018-01-01] MEDS ORDERED: METHADONE HCL 40 MG DISPERSABLE TABLET ONE (05:57)
[2018-01-01] MEDS ORDERED: METHADONE HCL 10 MG TABLET ONE (05:57)
[2018-01-01] MEDS ORDERED: METHADONE HCL 10 MG TABLET PO SCH (06:00)
[2018-01-01] MEDS: METHADONE 40 MG, METHADONE 10 MG PO SCH (06:48)
[2018-01-01] MEDS ORDERED: METHADONE HCL 5 MG TABLET (FOR DETOX USE ONLY) PO SCH (10:00)
[2018-01-01] MEDS: PRENATAL VITAMINS W/ FOLIC ACID TABLET (FP) PO SCH (10:15)
[2018-01-01] MEDS: IBUPROFEN 400 MG TABLET (FP) PO PRN ×2 (10:16→17:34)
[2018-01-01] MEDS: TOPIRAMATE 25 MG TABLET (FP) PO SCH ×2 (10:16→21:35)
[2018-01-01] MEDS: NICOTINE 21 MG/24 HOURS TOPICAL PATCH TD SCH (10:16)
[2018-01-01] MEDS: hydrOXYzine PAMOATE 50 MG CAPSULE (FP) PO PRN ×3 (10:17→21:37)
[2018-01-01] MEDS: THIAMINE HCL 100 MG TABLET (FP) PO SCH (21:35)
[2018-01-01] MEDS: QUEtiapine FUMARATE 100 MG TABLET (FP) PO SCH (21:36)
[2018-01-02] MEDS ORDERED: METHADONE HCL 10 MG TABLET ONE (02:29)
[2018-01-02] MEDS ORDERED: METHADONE HCL 40 MG DISPERSABLE TABLET ONE (02:29)
[2018-01-02] MEDS: METHADONE 40 MG, METHADONE 10 MG PO SCH (06:31)
[2018-01-02] MEDS: PRENATAL VITAMINS W/ FOLIC ACID TABLET (FP) PO SCH (10:00)
[2018-01-02] MEDS: TOPIRAMATE 25 MG TABLET (FP) PO SCH ×2 (10:00→21:41)
[2018-01-02] MEDS: NICOTINE 21 MG/24 HOURS TOPICAL PATCH TD SCH (10:01)
[2018-01-02] MEDS: QUEtiapine FUMARATE 100 MG TABLET (FP) PO SCH (21:41)
[2018-01-02] MEDS: THIAMINE HCL 100 MG TABLET (FP) PO SCH (21:41)
[2018-01-02] MEDS: IBUPROFEN 400 MG TABLET (FP) PO PRN (22:31)
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
[2018-01-03] MEDS ORDERED: METHADONE HCL 10 MG TABLET ONE (04:22)
[2018-01-03] MEDS ORDERED: METHADONE HCL 40 MG DISPERSABLE TABLET ONE (04:22)
[2018-01-03] MEDS: METHADONE 40 MG, METHADONE 10 MG PO SCH (06:26)
[2018-01-03] MEDS: PRENATAL VITAMINS W/ FOLIC ACID TABLET (FP) PO SCH (10:42)
[2018-01-03] MEDS: NICOTINE 21 MG/24 HOURS TOPICAL PATCH TD SCH (10:43)
[2018-01-03] MEDS: TOPIRAMATE 25 MG TABLET (FP) PO SCH ×2 (10:43→21:22)
[2018-01-03] MEDS: THIAMINE HCL 100 MG TABLET (FP) PO SCH (21:22)
[2018-01-03] MEDS: QUEtiapine FUMARATE 100 MG TABLET (FP) PO SCH (21:22)
[2018-01-03] MEDS ORDERED: diphenhydrAMINE HCL 50 MG CAPSULE PO ONE (23:04)
[2018-01-04] MEDS ORDERED: METHADONE HCL 40 MG DISPERSABLE TABLET ONE (03:53)
[2018-01-04] MEDS ORDERED: METHADONE HCL 10 MG TABLET ONE (03:53)
[2018-01-04] MEDS: METHADONE 40 MG, METHADONE 10 MG PO SCH (06:26)
[2018-01-04 10:24] LABS: URINE APPEARANCE CLEAR; URINE BILIRUBIN NEGATIVE (<2.0 mg/dL); URINE BLOOD NEGATIVE (NEGATIVE); URINE COLOR YELLOW; URINE GLUCOSE (UA) NEGATIVE (NEGATIVE); URINE KETONE NEGATIVE (NEGATIVE); URINE LEUK ESTERASE NEGATIVE (NEGATIVE); URINE NITRITE NEGATIVE (NEGATIVE); URINE PROTEIN NEGATIVE (NEGATIVE); URINE UROBILINOGEN NEGATIVE mg/dL (0.2-1.0)
[2018-01-04] MEDS: NICOTINE 21 MG/24 HOURS TOPICAL PATCH TD SCH (10:29)
[2018-01-04] MEDS: TOPIRAMATE 25 MG TABLET (FP) PO SCH ×2 (10:29→21:15)
[2018-01-04] MEDS: PRENATAL VITAMINS W/ FOLIC ACID TABLET (FP) PO SCH (10:29)
[2018-01-04] MEDS: QUEtiapine FUMARATE 100 MG TABLET (FP) PO SCH (21:15)
[2018-01-04] MEDS: THIAMINE HCL 100 MG TABLET (FP) PO SCH (21:15)
[2018-01-05] MEDS ORDERED: METHADONE HCL 10 MG TABLET ONE (03:19)
[2018-01-05] MEDS ORDERED: METHADONE HCL 40 MG DISPERSABLE TABLET ONE (03:20)
[2018-01-05] MEDS: METHADONE 40 MG, METHADONE 10 MG PO SCH (06:25)
[2018-01-05] MEDS: TOPIRAMATE 25 MG TABLET (FP) PO SCH ×2 (10:09→21:46)
[2018-01-05] MEDS: NICOTINE 21 MG/24 HOURS TOPICAL PATCH TD SCH (10:09)
[2018-01-05] MEDS: PRENATAL VITAMINS W/ FOLIC ACID TABLET (FP) PO SCH (10:09)
[2018-01-05] MEDS ORDERED: ALBUTEROL SO4 18 GM HFA INHALER IH PRN ×2 (15:16→15:22)
--- NOTE | 2018-01-05 15:26 | PN ---
[facility] Progress Note Note: HISTORY OF ASTHMA,ON ALBUTEROL INHALER 2 PUFF Q 4H PRN FOR WHEEZING,CLOSE MONITORING
[2018-01-05] MEDS: QUEtiapine FUMARATE 100 MG TABLET (FP) PO SCH (21:46)
[2018-01-05] MEDS: THIAMINE HCL 100 MG TABLET (FP) PO SCH (21:47)
[2018-01-05] MEDS: hydrOXYzine PAMOATE 50 MG CAPSULE (FP) PO PRN (21:48)
[2018-01-06] MEDS: hydrOXYzine PAMOATE 50 MG CAPSULE (FP) PO PRN ×2 (02:58→10:11)
[2018-01-06] MEDS ORDERED: METHADONE HCL 10 MG TABLET ONE (03:33)
[2018-01-06] MEDS ORDERED: METHADONE HCL 40 MG DISPERSABLE TABLET ONE (03:33)
[2018-01-06] MEDS: METHADONE 40 MG, METHADONE 10 MG PO SCH (06:12)
[2018-01-06] MEDS: PRENATAL VITAMINS W/ FOLIC ACID TABLET (FP) PO SCH (10:10)
[2018-01-06] MEDS: NICOTINE 21 MG/24 HOURS TOPICAL PATCH TD SCH (10:10)
[2018-01-06] MEDS: TOPIRAMATE 25 MG TABLET (FP) PO SCH ×2 (10:10→21:46)
[2018-01-06] MEDS: NICOTINE POLACRILEX 2 MG GUM BUC PRN (10:12)
--- NOTE | 2018-01-06 15:15 | PN ---
Psychiatric Progress Note Vital Signs: Vital Signs Period Temp Pulse Resp BP Sys/Cardenas Pulse Ox Last 24 Hr 97.6 F 74 16-16 136/78 Date of Session: 01/06/18 Chief Complaint:: insomnia HPI: Patient is addressing cocaine, opioid, benzo, nicotine dependence comorbid mood disorder and insomnia. ROS: wnl Current Medications: Active Medications Generic Name Dose Route Start Last Admin Trade Name Freq PRN Reason Stop Dose Admin Acetaminophen 650 mg 12/27/17 18:47 12/31/17 15:15 Tylenol - PO 650 mg Q4H PRN Administration FEVER Al Hydroxide/Mg Hydroxide 30 ml 12/27/17 18:47 Mylanta Oral Suspension - PO Q6H PRN DYSPEPSIA Albuterol Sulfate 2 puff 01/05/18 15:22 Ventolin Hfa Inhaler - IH Q4H PRN ASTHMA Eucalyptus/Menthol/Phenol/Sorbitol 1 each 12/27/17 18:47 Cepastat Lozenge - MM Q4H PRN SORE THROAT Guaifenesin 10 ml 12/27/17 18:47 Robitussin Dm - PO Q6H PRN COUGH Hydroxyzine Pamoate 50 mg 12/27/17 18:47 01/06/18 10:11 Vistaril - PO 50 mg Q4H PRN Administration AGITATION Ibuprofen 400 mg 12/27/17 18:47 01/02/18 22:31 Motrin - PO 400 mg Q6H PRN Administration Pain Level 4-6 Loperamide HCl 4 mg 12/27/17 18:47 12/31/17 09:36 Imodium - PO 4 mg Q6H PRN Administration DIARRHEA Magnesium Citrate 300 ml 12/27/17 18:47 Citroma - PO Q48H PRN CONSTIPATION Magnesium Hydroxide 30 ml 12/27/17 18:47 Milk Of Magnesia - PO DAILY PRN CONSTIPATION Melatonin 5 mg 12/27/17 22:00 01/02/18 02:02 Melatonin PO 5 mg HS PRN Administration INSOMNIA Methadone HCl 40 mg/ Methadone 50 mg 01/01/18 06:00 01/06/18 06:12 HCl 10 mg PO 01/07/18 05:59 50 mg DAILY@0600 MARY Administration Nicotine 21 mg 12/28/17 10:00 01/06/18 10:10 Nicoderm Patch - TD Not Given DAILY MARY Nicotine Polacrilex 2 mg 12/27/17 18:47 01/06/18 10:12 Nicorette Gum - BUC 2 mg Q2H PRN Administration NICOTINE REPLACEMENT RX Multivit/Folic Acid/Iron 1 tab 12/28/17 10:00 01/06/18 10:10 Vitamins (Sjr) - PO 1 tab DAILY MARY Administration Pseudoephedrine/Triprolidine 1 combo 12/27/17 18:47 Actifed - PO TID PRN NASAL CONGESTION Quetiapine Fumarate 100 mg 12/28/17 22:00 01/05/18 21:46 Seroquel - PO 100 mg HS MARY Administration Suvorexant 10 mg 01/06/18 22:00 Belsomra PO 01/13/18 21:59 HS MARY Thiamine HCl 100 mg 12/27/17 22:00 01/05/18 21:47 Vitamin B1 - PO 100 mg HS MARY Administration Topiramate 25 mg 12/31/17 22:00 01/06/18 10:10 Topamax - PO 25 mg BID MARY Administration Current Side Effect: No Lab tests ordered: No Lab tests reviewed: Yes Provider note:: patient reports he has a difficult time at nights , not able to sleep, next day melody, will add Belsomra, side-effects/benefts discussed with the patient , will continue to monitor progress. Total face to face time:: 15 Mental Status Exam - Mental Status Exam Alert and Oriented to: Time, Place, Person Cognitive Function: Good Patient Appearance: Well Groomed Mood: Sad, Anxious Affect: Appropriate, Mood Congruent Patient Behavior: Appropriate, Cooperative Speech Pattern: Clear, Appropriate Voice Loudness: Normal Thought Process: Intact, Goal Oriented Thought Disorder: Not Present Hallucinations: Denies Suicidal Ideation: Denies Homicidal Ideation: Denies Insight/Judgement: Fair Sleep: Poorly, Difficulty falling asleep Appetite: Fair Muscle strength/Tone: Normal Gait/Station: Normal Psychiatric Treatment Plan - Problem List (1) Sedative hypnotic or anxiolytic dependence Current Visit: Yes (2) Mood disorder Current Visit: Yes (3) Cocaine dependence Current Visit: No Comment: . (4) Heroin dependence Current Visit: No (5) Marijuana dependence Current Visit: No Comment: . (6) Nicotine dependence Current Visit: No Comment: . (7) Opioid dependence on agonist therapy Current Visit: No Comment: . (8) Insomnia Current Visit: No Comment: .
[2018-01-06] MEDS: IBUPROFEN 400 MG TABLET (FP) PO PRN (19:47)
[2018-01-06] MEDS: SUVOREXANT 10 MG TABLET PO SCH (21:46)
[2018-01-06] MEDS: QUEtiapine FUMARATE 100 MG TABLET (FP) PO SCH (21:46)
[2018-01-06] MEDS: THIAMINE HCL 100 MG TABLET (FP) PO SCH (21:46)
[2018-01-07] MEDS ORDERED: METHADONE HCL 10 MG TABLET PO SCH (06:45)
[2018-01-07] MEDS ORDERED: METHADONE HCL 10 MG TABLET ONE (06:59)
[2018-01-07] MEDS ORDERED: METHADONE HCL 40 MG DISPERSABLE TABLET ONE (06:59)
[2018-01-07] MEDS: METHADONE 40 MG, METHADONE 10 MG PO SCH (07:01)
[2018-01-07] MEDS: TOPIRAMATE 25 MG TABLET (FP) PO SCH ×2 (10:22→21:36)
[2018-01-07] MEDS: PRENATAL VITAMINS W/ FOLIC ACID TABLET (FP) PO SCH (10:22)
[2018-01-07] MEDS: NICOTINE 21 MG/24 HOURS TOPICAL PATCH TD SCH (10:22)
[2018-01-07] MEDS: QUEtiapine FUMARATE 100 MG TABLET (FP) PO SCH (21:36)
[2018-01-07] MEDS: THIAMINE HCL 100 MG TABLET (FP) PO SCH (21:36)
[2018-01-07] MEDS: SUVOREXANT 10 MG TABLET PO SCH (21:36)
[2018-01-08] MEDS ORDERED: METHADONE HCL 10 MG TABLET ONE (03:59)
[2018-01-08] MEDS ORDERED: METHADONE HCL 40 MG DISPERSABLE TABLET ONE (03:59)
[2018-01-08] MEDS: METHADONE 40 MG, METHADONE 10 MG PO SCH (06:55)
[2018-01-08 07:02] VITALS: PULSE 83
[2018-01-08] MEDS: TOPIRAMATE 25 MG TABLET (FP) PO SCH ×2 (09:50→21:25)
[2018-01-08] MEDS: PRENATAL VITAMINS W/ FOLIC ACID TABLET (FP) PO SCH (09:50)
[2018-01-08] MEDS: NICOTINE 21 MG/24 HOURS TOPICAL PATCH TD SCH (09:50)
[2018-01-08] MEDS: NICOTINE POLACRILEX 2 MG GUM BUC PRN (09:51)
[2018-01-08] MEDS: THIAMINE HCL 100 MG TABLET (FP) PO SCH (21:25)
[2018-01-08] MEDS: SUVOREXANT 10 MG TABLET PO SCH (21:25)
[2018-01-08] MEDS: QUEtiapine FUMARATE 100 MG TABLET (FP) PO SCH (21:25)
[2018-01-08] MEDS: hydrOXYzine PAMOATE 50 MG CAPSULE (FP) PO PRN (21:26)
[2018-01-09] MEDS ORDERED: METHADONE HCL 10 MG TABLET ONE (05:24)
[2018-01-09] MEDS ORDERED: METHADONE HCL 40 MG DISPERSABLE TABLET ONE (05:25)
[2018-01-09] MEDS: METHADONE 40 MG, METHADONE 10 MG PO SCH (06:49)
[2018-01-09 07:03] VITALS: BP 137/79; TEMP 98.4
[2018-01-09] MEDS: NICOTINE POLACRILEX 2 MG GUM BUC PRN (09:54)
[2018-01-09] MEDS: PRENATAL VITAMINS W/ FOLIC ACID TABLET (FP) PO SCH (09:54)
[2018-01-09] MEDS: NICOTINE 21 MG/24 HOURS TOPICAL PATCH TD SCH (09:54)
[2018-01-09] MEDS: TOPIRAMATE 25 MG TABLET (FP) PO SCH (09:54)
[2018-01-09] MEDS: hydrOXYzine PAMOATE 50 MG CAPSULE (FP) PO PRN (09:56)
--- NOTE | 2018-01-09 10:57 | PN ---
[facility] Progress Note Note: Called by nursing staff informing that patient left unit after telling them he was not going to wait for anything(not even signing papers) or anybody. Though patient was admitted to the unit on 12/27/17 and has [facility] as referral on record, [facility] is not comfortable giving me a regular discharge. Dr Hagen, unit attending was made aware of my decision
== END 2018-01-09 10:45 | disposition left against medical advice (07) | DRG 770 ==
LOC: YASAS 18:36 → Y5N 18:37
PROVIDERS: ADMIT Psychiatry & Neurology Psychiatry; ATTEND Psychiatry & Neurology Psychiatry
PROC: HZ42ZZZ Group Counseling for Substance Abuse Treatment, Cognitive-Behavioral (ICD-10-PCS; principal; 2017-12-27)
DX: F11.20 Opioid dependence, uncomplicated (principal); F13.230 Sedative, hypnotic or anxiolytic dependence with withdrawal, uncomplicated; F14.20 Cocaine dependence, uncomplicated; F12.20 Cannabis dependence, uncomplicated; F17.210 Nicotine dependence, cigarettes, uncomplicated; F39 Unspecified mood [affective] disorder; G47.00 Insomnia, unspecified
CPT/HCPCS: 81003

== ENCOUNTER 2019-01-11 10:28 | Inpatient (IN) | payer OTHER ==
[2019-01-11 12:16] VITALS: BMI 25.7
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
[2019-01-11] MEDS ORDERED: MAG HYDROX/AL HYDROX/SIMETH 30 ML UNIT-DOSE CUP PO PRN (13:34)
[2019-01-11] MEDS ORDERED: MENTHOL/PHENOL 1 EACH UD MM PRN (13:34)
[2019-01-11] MEDS ORDERED: MAGNESIUM HYDROX 2400MG/30ML ORAL SUSPENSION 30 ML CUP PO PRN (13:34)
[2019-01-11] MEDS ORDERED: IBUPROFEN 400 MG TABLET (FP) PO PRN (13:34)
[2019-01-11] MEDS ORDERED: MAGNESIUM CITRATE 300 ML BOTTLE PO PRN (13:34)
[2019-01-11] MEDS ORDERED: METHOCARBAMOL 500 MG TABLET PO PRN (13:34)
[2019-01-11] MEDS ORDERED: BISMUTH SUBSALICYLATE 262 MG/15 ML BTL PO PRN (13:34)
[2019-01-11] MEDS ORDERED: ACETAMINOPHEN 325 MG TABLET (FP) PO PRN ×2 (13:34)
[2019-01-11] MEDS ORDERED: ALBUTEROL SO4 8 GM HFA INHALER IH SCH (14:00)
[2019-01-11] MEDS ORDERED: METHADONE HCL 10 MG TABLET (FOR DETOX USE ONLY) PO ONE ×2 (14:20→23:00)
[2019-01-11] MEDS: chlordiazePOXIDE HCL 25 MG CAPSULE PO PRN (14:47)
[2019-01-11 16:11] LABS: HEMATOCRIT 44.3 % (35.4-49); HEMOGLOBIN 15.2 GM/dL (11.7-16.9); MCH 31.5 pg (25.7-33.7); MCHC 34.2 g/dl (32.0-35.9); MEAN CELL VOLUME 92.2 fl (80-96); MEAN PLT VOLUME 8.3 fl (7.5-11.1); PLATELET COUNT 206 K/MM3 (134-434); RBC 4.81 M/mm3 (4.00-5.60); RDW 14.4 % (11.9-15.9); WHITE BLOOD COUNT 6.8 K/mm3 (4.0-10.0)
[2019-01-11 16:23] LABS: ALBUMIN 3.9 g/dl (3.4-5.0); ALK PHOS 170 U/L (45-117); ANION GAP 7 MMOL/L (8-16); BILIRUBIN,TOTAL 0.6 mg/dL (0.2-1); BLOOD UREA NITROGEN 16 mg/dL (7-18); CALCIUM 9.2 mg/dL (8.5-10.1); CHLORIDE 108 mmol/L (98-107); CO2 24 mmol/L (21-32); GLUCOSE,RANDOM 116 mg/dL (74-106); POTASSIUM 3.8 mmol/L (3.5-5.1); SGOT/AST 137 U/L (15-37); SGPT/ALT 52 U/L (13-61); SODIUM 139 mmol/L (136-145); TOT PROT 7.6 g/dl (6.4-8.2)
[2019-01-11] MEDS ORDERED: ALBUTEROL SO4 8 GM HFA INHALER IH PRN (17:04)
[2019-01-11] MEDS: chlordiazePOXIDE HCL 25 MG CAPSULE PO SCH ×2 (17:25→22:11)
[2019-01-11] MEDS: MELATONIN 5 MG TABLETS PO PRN (22:11)
[2019-01-11] MEDS: THIAMINE HCL 100 MG TABLET (FP) PO SCH (22:11)
[2019-01-12] MEDS: chlordiazePOXIDE HCL 25 MG CAPSULE PO SCH ×4 (06:16→22:05)
[2019-01-12] MEDS ORDERED: METHADONE HCL 10 MG TABLET (FOR DETOX USE ONLY) PO ONE (10:00)
[2019-01-12] MEDS: PRENATAL VITAMINS W/ FOLIC ACID TABLET (FP) PO SCH (10:12)
[2019-01-12] MEDS: NICOTINE 21 MG/24 HOURS TOPICAL PATCH TD SCH (10:13)
--- NOTE | 2019-01-12 12:17 | EKG ---
Test Reason : Blood Pressure : / mmHG Vent. Rate : 068 BPM Atrial Rate : 068 BPM P-R Int : 166 ms QRS Dur : 086 ms QT Int : 384 ms P-R-T Axes : 071 -44 042 degrees QTc Int : 408 ms NORMAL SINUS RHYTHM LEFT AXIS DEVIATION ABNORMAL ECG WHEN COMPARED WITH ECG OF 24-DEC-2017 19:46, NO SIGNIFICANT CHANGE WAS FOUND Confirmed by WILLI ALEXANDER MD ([id number]) on 01/12/2019 12:16:47 PM Referred By: Confirmed By:WILLI ALEXANDER MD
[2019-01-12] MEDS: chlordiazePOXIDE HCL 25 MG CAPSULE PO PRN ×2 (13:24→19:21)
[2019-01-12] MEDS: cloNIDine HCL 0.1 MG TABLET PO PRN ×2 (13:24→19:21)
[2019-01-12] MEDS ORDERED: PROCHLORPERAZINE MALEATE 5 MG TABLET PO PRN (15:22)
--- NOTE | 2019-01-12 15:26 | PN ---
[facility] CIWA - CIWA Score Nausea/Vomitin-No Nausea/No Vomiting Muscle Tremors: 3 Anxiety: 3 Agitation: 0-Normal Activity Paroxysmal Sweats: 3 Orientation: 2-Disoriented Date<2 days Tacttile Disturbances: 0-None Auditory Disturbances: 1-Very Mild Visual Disturbances: 3-Moderate Sensitivity Headache: 0-None Present CIWA-Ar Total Score: 15 [facility] COWS - Scale Resting Pulse: 0= [place] 80 or Below Sweatin= Chills/Flushing Restless Observation: 0= Sits Still Pupil Size: 0= Normal to Room Light Bone or Joint Aches: 2= Severe Diffuse Aches Runny Nose/ Eye Tearin= None GI Upset > 30mins: 2= Nausea/Diarrhea Tremor Observation of Outstretched Hands: 2= Slight Tremor Visible Yawning Observation: 1= 1-2x During Session Anxiety or Irritability: 2=Irritable/Anxious Goose Flesh Skin: 3=Piloerection COWS Score: 13 S Progress Note (SOAP) Subjective: Poor Appetite, Interrupted Sleep, Sweating, Tremors, Body Aches, Stomach Cramping, Nausea. Objective: PATIENT A & O X 2 (UNCERTAIN ABOUT CURRENT DAY / DATE). IN NO ACUTE DISTRESS. 01/12/19 15:25 Vital Signs Temperature 98.2 F 01/12/19 14:20 Pulse Rate 78 01/12/19 14:20 Respiratory Rate 16 01/12/19 14:20 Blood Pressure 130/82 01/12/19 14:20 O2 Sat by Pulse Oximetry (%) Laboratory Tests 01/11/19 01/11/19 01/11/19 13:45 13:45 13:45 WBC 6.8 RBC 4.81 Hgb 15.2 Hct 44.3 MCV 92.2 MCH 31.5 MCHC 34.2 RDW 14.4 Plt Count 206 D MPV 8.3 Sodium 139 Potassium 3.8 Chloride 108 H Carbon Dioxide 24 Anion Gap 7 L BUN 16 Creatinine 1.0 Creat Clearance w eGFR 77.87 Random Glucose 116 H Calcium 9.2 Total Bilirubin 0.6 AST 137 H ALT 52 Alkaline Phosphatase 170 H Total Protein 7.6 Albumin 3.9 RPR Titer Nonreactive LABS NOTED. Assessment: 01/12/19 15:25 WITHDRAWAL SYMPTOMS. ELEVATED LIVER ENZYMES. 01/12/19 15:27 Plan: CONTINUE DETOX. INCREASE DAILY PO FLUID INTAKE. PRN COMAPZINE PO FOR NAUSEA. ENSURE PO BID FOR CALORIC SUPPLEMENTATION. PRN PEPTO-BISMOL PO FOR DIARRHEA. REPEAT AST AND AP TOMORROW AM FOR ELEVATED ADMISSION LEVELS.
[2019-01-12] MEDS: MELATONIN 5 MG TABLETS PO PRN (22:05)
[2019-01-12] MEDS: THIAMINE HCL 100 MG TABLET (FP) PO SCH (22:05)
[2019-01-13] MEDS: chlordiazePOXIDE HCL 25 MG CAPSULE PO SCH ×2 (06:13→11:12)
[2019-01-13] MEDS: NICOTINE 21 MG/24 HOURS TOPICAL PATCH TD SCH (09:35)
[2019-01-13] MEDS: PRENATAL VITAMINS W/ FOLIC ACID TABLET (FP) PO SCH (09:35)
[2019-01-13] MEDS: NICOTINE POLACRILEX 2 MG GUM BUC PRN (09:38)
[2019-01-13] MEDS ORDERED: METHADONE HCL 10 MG TABLET (FOR DETOX USE ONLY) PO ONE (10:00)
[2019-01-13 11:07] LABS: ALK PHOS 184 U/L (45-117); SGOT/AST 82 U/L (15-37)
--- NOTE | 2019-01-13 14:29 | PN ---
[facility] CIWA - CIWA Score Nausea/Vomitin-Mild Nausea/No Vomiting Muscle Tremors: 1-None Visible, but [place] Anxiety: 2 Agitation: 2 Paroxysmal Sweats: 2 Orientation: 0-Oriented Tacttile Disturbances: 1-Very Mild Itch/Numbness Auditory Disturbances: 0-None Visual Disturbances: 1-Very Mild Sensitivity Headache: 0-None Present CIWA-Ar Total Score: 10 S COWS - Scale Resting Pulse: 0= [place] 80 or Below Sweatin= Chills/Flushing Restless Observation: 0= Sits Still Pupil Size: 0= Normal to Room Light Bone or Joint Aches: 1= Mild Discomfort Runny Nose/ Eye Tearin= Runny Nose/Eyes GI Upset > 30mins: 0= None Tremor Observation of Outstretched Hands: 1= Tremor [place], Not Seen Yawning Observation: 2= >3x During Session Anxiety or Irritability: 2=Irritable/Anxious Goose Flesh Skin: 0=Smooth Skin COWS Score: 9 S Progress Note (SOAP) Subjective: irritable, interrupted sleep , body aches Objective: 01/13/19 14:27 Vital Signs Temperature 96.1 F L 01/13/19 11:19 Pulse Rate 80 01/13/19 11:19 Respiratory Rate 18 01/13/19 11:19 Blood Pressure 120/69 01/13/19 11:19 O2 Sat by Pulse Oximetry (%) Laboratory Last Values WBC 6.8 K/mm3 (4.0-10.0) 01/11/19 13:45 RBC 4.81 M/mm3 (4.00-5.60) 01/11/19 13:45 Hgb 15.2 GM/dL (11.7-16.9) 01/11/19 13:45 Hct 44.3 % (35.4-49) 01/11/19 13:45 MCV 92.2 fl (80-96) 01/11/19 13:45 MCH 31.5 pg (25.7-33.7) 01/11/19 13:45 MCHC 34.2 g/dl (32.0-35.9) 01/11/19 13:45 RDW 14.4 % (11.9-15.9) 01/11/19 13:45 Plt Count 206 K/MM3 (134-434) D 01/11/19 13:45 MPV 8.3 fl (7.5-11.1) 01/11/19 13:45 Sodium 139 mmol/L (136-145) 01/11/19 13:45 Potassium 3.8 mmol/L (3.5-5.1) 01/11/19 13:45 Chloride 108 mmol/L (98-107) H 01/11/19 13:45 Carbon Dioxide 24 mmol/L (21-32) 01/11/19 13:45 Anion Gap 7 MMOL/L (8-16) L 01/11/19 13:45 BUN 16 mg/dL (7-18) 01/11/19 13:45 Creatinine 1.0 mg/dL (0.55-1.3) 01/11/19 13:45 Creat Clearance w eGFR 77.87 (>60) 01/11/19 13:45 Random Glucose 116 mg/dL (74-106) H 01/11/19 13:45 Calcium 9.2 mg/dL (8.5-10.1) 01/11/19 13:45 Total Bilirubin 0.6 mg/dL (0.2-1) 01/11/19 13:45 AST 82 U/L (15-37) H 01/13/19 07:00 ALT 52 U/L (13-61) 01/11/19 13:45 Alkaline Phosphatase 184 U/L (45-117) H 01/13/19 07:00 Total Protein 7.6 g/dl (6.4-8.2) 01/11/19 13:45 Albumin 3.9 g/dl (3.4-5.0) 01/11/19 13:45 RPR Titer Nonreactive (NONREACTIVE) 01/11/19 13:45 Labs reviewed d/c ensure elevated AL Phos Patient reports no other symptoms Aox3 no distress full ROM ambulating in the unit withdrawal sx increase PO fluids continue detox monitor for worsening symptoms Patient to follow up with primary care provider upon discharge from detox
[2019-01-13] MEDS: cloNIDine HCL 0.1 MG TABLET PO PRN (16:06)
[2019-01-13] MEDS ORDERED: chlordiazePOXIDE HCL 10 MG CAPSULE PO PRN (17:00)
[2019-01-13] MEDS: chlordiazePOXIDE HCL 10 MG CAPSULE PO SCH ×2 (17:29→22:42)
[2019-01-13] MEDS: MELATONIN 5 MG TABLETS PO PRN (22:42)
[2019-01-13] MEDS: THIAMINE HCL 100 MG TABLET (FP) PO SCH (22:42)
[2019-01-14] MEDS: chlordiazePOXIDE HCL 10 MG CAPSULE PO SCH ×2 (06:12→10:05)
[2019-01-14 09:50] VITALS: TEMP 98.4
[2019-01-14] MEDS ORDERED: METHADONE HCL 10 MG TABLET (FOR DETOX USE ONLY) PO ONE (10:00)
[2019-01-14] MEDS: PRENATAL VITAMINS W/ FOLIC ACID TABLET (FP) PO SCH (10:04)
[2019-01-14] MEDS: NICOTINE 21 MG/24 HOURS TOPICAL PATCH TD SCH (10:05)
[2019-01-14] MEDS: NICOTINE POLACRILEX 2 MG GUM BUC PRN (10:05)
[2019-01-14 14:35] VITALS: BP 114/66; PULSE 78
--- NOTE | 2019-01-14 15:40 | PN ---
S CIWA - CIWA Score Nausea/Vomitin-No Nausea/No Vomiting Muscle Tremors: None Anxiety: 2 Agitation: 1-Slight > Activity Paroxysmal Sweats: 2 Orientation: 0-Oriented Tacttile Disturbances: 0-None Auditory Disturbances: 0-None Visual Disturbances: 0-None Headache: 3-Moderate CIWA-Ar Total Score: 8 [facility] COWS - Scale Resting Pulse: 0= [place] 80 or Below Sweatin= No chills or Flushing Restless Observation: 0= Sits Still Pupil Size: 0= Normal to Room Light Bone or Joint Aches: 1= Mild Discomfort Runny Nose/ Eye Tearin= None GI Upset > 30mins: 0= None Tremor Observation of Outstretched Hands: 0= None Yawning Observation: 1= 1-2x During Session Anxiety or Irritability: 1=Feels Anxious/Irritable Goose Flesh Skin: 0=Smooth Skin COWS Score: 3 BHS Progress Note (SOAP) Subjective: interrupted sleep sweats Objective: 01/14/19 15:42 Vital Signs 01/14/19 01/14/19 09:49 14:34 Temperature 98.4 F 98.4 F Pulse Rate 79 78 Respiratory 18 18 Rate Blood Pressure 127/67 114/66 Laboratory Last Values WBC 6.8 K/mm3 (4.0-10.0) 01/11/19 13:45 RBC 4.81 M/mm3 (4.00-5.60) 01/11/19 13:45 Hgb 15.2 GM/dL (11.7-16.9) 01/11/19 13:45 Hct 44.3 % (35.4-49) 01/11/19 13:45 MCV 92.2 fl (80-96) 01/11/19 13:45 MCH 31.5 pg (25.7-33.7) 01/11/19 13:45 MCHC 34.2 g/dl (32.0-35.9) 01/11/19 13:45 RDW 14.4 % (11.9-15.9) 01/11/19 13:45 Plt Count 206 K/MM3 (134-434) D 01/11/19 13:45 MPV 8.3 fl (7.5-11.1) 01/11/19 13:45 Sodium 139 mmol/L (136-145) 01/11/19 13:45 Potassium 3.8 mmol/L (3.5-5.1) 01/11/19 13:45 Chloride 108 mmol/L (98-107) H 01/11/19 13:45 Carbon Dioxide 24 mmol/L (21-32) 01/11/19 13:45 Anion Gap 7 MMOL/L (8-16) L 01/11/19 13:45 BUN 16 mg/dL (7-18) 01/11/19 13:45 Creatinine 1.0 mg/dL (0.55-1.3) 01/11/19 13:45 Creat Clearance w eGFR 77.87 (>60) 01/11/19 13:45 Random Glucose 116 mg/dL (74-106) H 01/11/19 13:45 Calcium 9.2 mg/dL (8.5-10.1) 01/11/19 13:45 Total Bilirubin 0.6 mg/dL (0.2-1) 01/11/19 13:45 AST 82 U/L (15-37) H 01/13/19 07:00 ALT 52 U/L (13-61) 01/11/19 13:45 Alkaline Phosphatase 184 U/L (45-117) H 01/13/19 07:00 Total Protein 7.6 g/dl (6.4-8.2) 01/11/19 13:45 Albumin 3.9 g/dl (3.4-5.0) 01/11/19 13:45 RPR Titer Nonreactive (NONREACTIVE) 01/11/19 13:45 labs reviewed Assessment: 01/14/19 15:43 No respiratory distress full rom ambulating in the unit Plan: continue detox increase fluids continue to monitor
--- NOTE | 2019-01-14 16:54 | DS ---
[facility] Detox Discharge Summary Admission Date: 01/11/19 Discharge Date: 01/14/19 - History Present History: Alcohol Dependence, Cocaine Dependence, Opioid Dependence Pertinent Past History: Recent drug overdose, asthma, depression and multi drug use intravenously - Physical Exam Results Vital Signs: Vital Signs Temperature 98.4 F 01/14/19 14:34 Pulse Rate 78 01/14/19 14:34 Respiratory Rate 18 01/14/19 14:34 Blood Pressure 114/66 01/14/19 14:34 O2 Sat by Pulse Oximetry (%) Pertinent Admission Physical Exam Findings: Withdrawal sx Laboratory Last Values WBC 6.8 K/mm3 (4.0-10.0) 01/11/19 13:45 RBC 4.81 M/mm3 (4.00-5.60) 01/11/19 13:45 Hgb 15.2 GM/dL (11.7-16.9) 01/11/19 13:45 Hct 44.3 % (35.4-49) 01/11/19 13:45 MCV 92.2 fl (80-96) 01/11/19 13:45 MCH 31.5 pg (25.7-33.7) 01/11/19 13:45 MCHC 34.2 g/dl (32.0-35.9) 01/11/19 13:45 RDW 14.4 % (11.9-15.9) 01/11/19 13:45 Plt Count 206 K/MM3 (134-434) D 01/11/19 13:45 MPV 8.3 fl (7.5-11.1) 01/11/19 13:45 Sodium 139 mmol/L (136-145) 01/11/19 13:45 Potassium 3.8 mmol/L (3.5-5.1) 01/11/19 13:45 Chloride 108 mmol/L (98-107) H 01/11/19 13:45 Carbon Dioxide 24 mmol/L (21-32) 01/11/19 13:45 Anion Gap 7 MMOL/L (8-16) L 01/11/19 13:45 BUN 16 mg/dL (7-18) 01/11/19 13:45 Creatinine 1.0 mg/dL (0.55-1.3) 01/11/19 13:45 Creat Clearance w eGFR 77.87 (>60) 01/11/19 13:45 Random Glucose 116 mg/dL (74-106) H 01/11/19 13:45 Calcium 9.2 mg/dL (8.5-10.1) 01/11/19 13:45 Total Bilirubin 0.6 mg/dL (0.2-1) 01/11/19 13:45 AST 82 U/L (15-37) H 01/13/19 07:00 ALT 52 U/L (13-61) 01/11/19 13:45 Alkaline Phosphatase 184 U/L (45-117) H 01/13/19 07:00 Total Protein 7.6 g/dl (6.4-8.2) 01/11/19 13:45 Albumin 3.9 g/dl (3.4-5.0) 01/11/19 13:45 RPR Titer Nonreactive (NONREACTIVE) 01/11/19 13:45 Labs noted - Treatment Hospital Course: Detox Protocol Followed, Detoxed Safely, Responded well ( Scheduled for d/c tomorrow, pt requested early d/c, he is stable and in good condition.), Discharged Condition Good - Medication Discharge Medications: Ambulatory Orders Albuterol Sulfate Inhaler - [Ventolin HFA Inhaler -] 1 - 2 inh PO QID 12/24/17 - Diagnosis (1) Alcohol dependence with withdrawal Current Visit: Yes Status: Acute Qualifiers: Complication of substance-induced condition: uncomplicated Qualified Code(s ): F10.230 - Alcohol dependence with withdrawal, uncomplicated (2) Cocaine dependence Current Visit: Yes Status: Acute Qualifiers: Substance use status: uncomplicated Qualified Code(s): F14.20 - Cocaine dependence, uncomplicated (3) IVDU (intravenous drug user) Current Visit: Yes Status: Acute (4) Nicotine dependence Current Visit: Yes Status: Acute Qualifiers: Nicotine product type: cigarettes Substance use status: uncomplicated Qualified Code(s): F17.210 - Nicotine dependence, cigarettes, uncomplicated (5) Opioid dependence with withdrawal Current Visit: Yes Status: Acute (6) Asthma Current Visit: Yes Status: Chronic Qualifiers: Asthma severity: mild Asthma persistence: intermittent Asthma complication type: uncomplicated Qualified Code(s): J45.20 - Mild intermittent asthma, uncomplicated - AMA Did Patient Leave Against Medical Advice: No
[2019-01-14] MEDS ORDERED: chlordiazePOXIDE HCL 10 MG CAPSULE PO SCH (17:00)
[2019-01-15] MEDS ORDERED: METHADONE HCL 5 MG TABLET (FOR DETOX USE ONLY) PO ONE (06:00)
== END 2019-01-14 17:04 | disposition home or self-care (01) | DRG 773 ==
LOC: YASAS 10:28 → Y6N 14:10
PROVIDERS: ADMIT Surgery; ATTEND Surgery
PROC: HZ2ZZZZ Detoxification Services for Substance Abuse Treatment (ICD-10-PCS; principal; 2019-01-11)
DX: F11.23 Opioid dependence with withdrawal (principal); F10.230 Alcohol dependence with withdrawal, uncomplicated; F14.20 Cocaine dependence, uncomplicated; F17.210 Nicotine dependence, cigarettes, uncomplicated; J45.20 Mild intermittent asthma, uncomplicated; R94.5 Abnormal results of liver function studies; Z59.0 Homelessness
CPT/HCPCS: 36415; 71046-TC-FY; 80053; 84075; 84450; 85027; 86593; 93005; 93010; J0735

== ENCOUNTER 2019-07-24 12:59 | Inpatient (IN) | payer OTHER ==
[2019-07-24 14:33] VITALS: BMI 21.8
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
[2019-07-24] MEDS ORDERED: hydrOXYzine PAMOATE 25 MG CAPSULE (FP) PO PRN (16:04)
[2019-07-24] MEDS ORDERED: IBUPROFEN 400 MG TABLET (FP) PO PRN (16:04)
[2019-07-24] MEDS ORDERED: MAG HYDROX/AL HYDROX/SIMETH 30 ML UNIT-DOSE CUP PO PRN (16:04)
[2019-07-24] MEDS ORDERED: ACETAMINOPHEN 325 MG TABLET (FP) PO PRN ×2 (16:04)
[2019-07-24] MEDS ORDERED: traZODone HCL 50 MG TABLET (FP) PO PRN (16:04)
[2019-07-24] MEDS ORDERED: BISMUTH SUBSALICYLATE 524 MG/30 ML UD PO PRN (16:04)
[2019-07-24] MEDS ORDERED: MAGNESIUM CITRATE 300 ML BOTTLE PO PRN (16:04)
[2019-07-24] MEDS ORDERED: ONDANSETRON *ODT* 4 MG TABLET SL PRN (16:04)
[2019-07-24] MEDS ORDERED: NICOTINE POLACRILEX 2 MG GUM BUC PRN (16:04)
[2019-07-24] MEDS ORDERED: MENTHOL/PHENOL 1 EACH UD MM PRN (16:04)
[2019-07-24] MEDS ORDERED: MAGNESIUM HYDROX 2400MG/30ML ORAL SUSPENSION 30 ML CUP PO PRN (16:04)
[2019-07-24] MEDS ORDERED: ALBUTEROL SO4 8 GM HFA INHALER IH PRN (16:06)
[2019-07-24] MEDS ORDERED: METHADONE HCL 10 MG TABLET (FOR DETOX USE ONLY) PO ONE (17:15)
[2019-07-24] MEDS: GABAPENTIN 400 MG CAPSULE (FP) PO SCH ×2 (17:29→22:36)
[2019-07-24] MEDS: THIAMINE HCL 100 MG TABLET (FP) PO SCH (22:04)
[2019-07-24] MEDS: MELATONIN 5 MG TABLETS PO PRN (22:06)
[2019-07-24] MEDS: clonazePAM 0.5 MG TABLET PO PRN (22:08)
[2019-07-25] MEDS: METHOCARBAMOL 500 MG TABLET PO PRN ×3 (02:27→17:17)
[2019-07-25] MEDS: GABAPENTIN 400 MG CAPSULE (FP) PO SCH ×3 (07:17→22:19)
[2019-07-25] MEDS ORDERED: METHADONE HCL 5 MG TABLET (FOR DETOX USE ONLY) ONE (08:18)
[2019-07-25] MEDS ORDERED: METHADONE HCL 10 MG TABLET (FOR DETOX USE ONLY) ONE (08:18)
--- NOTE | 2019-07-25 09:50 | CONSULT ---
[facility] Psychiatric Consult - Data Date of interview: 07/25/19 Admission source: [facility] Identifying data: Patient is a 53 year old single male, father of two, unemployed, homeless, and is not currently supported with financial assistance. This is one of multiple admissons for patient. Patient admitted to for PCP dependence. Substance Abuse History: - Smoking Cessation. Smoking history: Current every day smoker. Have you smoked in the past 12 months: Yes. Aproximately how many cigarettes per day: 10. Hx Chewing Tobacco Use: No. Initiated information on smoking cessation: Yes. 'Breaking Loose' booklet given: 07/24/19. - Substance & Tx. History. Substance Use Type: Alcohol, Cocaine, Heroin, Marijuana. - Substances abused. Alcohol. Substance route: Oral. Frequency: Daily. Amount used: 1 PINT VODKA & 6pk beer. Age of first use: 19. Date of last use: 07/24/19. Heroin. Substance route: Injection. Frequency: Daily. Amount used: $300-400. Age of first use: 19. Date of last use: 07/24/19. Cocaine. Substance route: Injection. Frequency: Daily. Amount used: $100. Age of first use: 19. Date of last use: 07/24/19. K2/Spice. Substance route: Smoking. Frequency: Daily. Amount used: 4- 5 bags. Age of first use: 49. Date of last use: 07/24/19. Alprazolam (Xanax). Substance route: Oral. Frequency: Daily. Amount used: 6 pills. Age of first use: 17. Date of last use: 07/23/19. Benzodiazepine (Klonopin). Substance route: Oral. Frequency: 3-6 times per week. Amount used: 5 pills. Age of first use: 19. Date of last use: 07/22/19 Medical History: Asthma Psychiatric History: Patient denies history of outpatient care and suicide attempt. Mr. Sutton reports history of one psychiatric hospitalization at [facility] 1.5 years ago after he hallucinated secondary to PCP use. Patient unable to recall medications prescribed to him when he was admitted to [facility]. Patient currently denies auditory/visual hallucinations but states that when he sleeps he often dreams of the family members he has lost in his life. States that there are moments when he hallucinates when not under the influence of an illicit substance. As per previous notes patient has accepted seroquel for insomnia. Mr. Sutton is currently refusing to accept seroquel as he states it causes his mouth to become dry. Physical/Sexual Abuse/Trauma History: denies. Mental Status Exam - Mental Status Exam Alert and Oriented to: Time, Place, Person Cognitive Function: Good Patient Appearance: Unkempt Mood: Withdrawn Affect: Mood Congruent Patient Behavior: Fatigued, Cooperative Speech Pattern: Clear Voice Loudness: Moderately Soft/Quiet Thought Process: Goal Oriented Thought Disorder: Not Present Hallucinations: Denies Suicidal Ideation: Denies Homicidal Ideation: Denies Insight/Judgement: Poor Sleep: Poorly Appetite: Fair Muscle strength/Tone: Normal Gait/Station: Normal Psychiatric Findings - Problem List ([place] 1, 2,3) (1) Cannabis dependence Current Visit: Yes Status: Acute (2) Cocaine dependence Current Visit: Yes Status: Acute Qualifiers: Substance use status: uncomplicated Qualified Code(s): F14.20 - Cocaine dependence, uncomplicated Comment: . (3) Opioid dependence with withdrawal Current Visit: Yes Status: Acute (4) Substance induced mood disorder Current Visit: Yes Status: Acute (5) Substance-induced sleep disorder Current Visit: Yes Status: Acute - Initial Treatment Plan Initial Treatment Plan: Psychoeducation provided. Detoxification in progress. Will order Belsomra 10mg HS + Vistaril 50mg Q4h. Benefits and side effects discussed. Verbal consent given.
[2019-07-25 09:51] LABS: HEMATOCRIT 41.9 % (35.4-49); HEMOGLOBIN 13.9 GM/dL (11.7-16.9); MCH 30.3 pg (25.7-33.7); MCHC 33.1 g/dl (32.0-35.9); MEAN CELL VOLUME 91.5 fl (80-96); MEAN PLT VOLUME 7.8 fl (7.5-11.1); PLATELET COUNT 212 K/MM3 (134-434); RBC 4.58 M/mm3 (4.00-5.60); RDW 13.5 % (11.9-15.9)
[2019-07-25] MEDS ORDERED: METHADONE (DETOX) 20 MG, METHADONE (DETOX) 5 MG PO ONE (10:00)
[2019-07-25] MEDS: PRENATAL VITAMINS W/ FOLIC ACID TABLET (FP) PO SCH (10:02)
[2019-07-25] MEDS: clonazePAM 0.5 MG TABLET PO PRN ×3 (10:03→22:19)
[2019-07-25 10:07] LABS: BILIRUBIN,TOTAL 0.3 mg/dL (0.2-1); BLOOD UREA NITROGEN 12.8 mg/dL (7-18); CALCIUM 8.5 mg/dL (8.5-10.1); CREATININE 1.1 mg/dL (0.55-1.3); POTASSIUM 4.3 mmol/L (3.5-5.1); TOT PROT 6.4 g/dl (6.4-8.2)
--- NOTE | 2019-07-25 10:41 | PN ---
[facility] COWS - Scale Resting Pulse: 0= [place] 80 or Below Sweatin= Chills/Flushing Restless Observation: 1= Difficult to Sit Still Pupil Size: 1= Pupils >than Normal Bone or Joint Aches: 2= Severe Diffuse Aches Runny Nose/ Eye Tearin= None GI Upset > 30mins: 1= Stomach Cramp Tremor Observation of Outstretched Hands: 2= Slight Tremor Visible Yawning Observation: 1= 1-2x During Session Anxiety or Irritability: 2=Irritable/Anxious Goose Flesh Skin: 3=Piloerection COWS Score: 14 BHS Progress Note (SOAP) Subjective: 53 years old male admitted on 07/24/19 for opiate withdrawal sx management treated with methadone detox regimen patient tolerated well discuss medication assisted treatment program patient appears anxious encourage anabella acostan Objective: 07/25/19 10:41 Vital Signs Temperature 98.5 F 07/25/19 09:33 Pulse Rate 64 07/25/19 09:33 Respiratory Rate 18 07/25/19 09:33 Blood Pressure 134/74 07/25/19 09:33 O2 Sat by Pulse Oximetry (%) Laboratory Last Values WBC 6.0 K/mm3 (4.0-10.0) 07/25/19 08:15 RBC 4.58 M/mm3 (4.00-5.60) 07/25/19 08:15 Hgb 13.9 GM/dL (11.7-16.9) 07/25/19 08:15 Hct 41.9 % (35.4-49) 07/25/19 08:15 MCV 91.5 fl (80-96) 07/25/19 08:15 MCH 30.3 pg (25.7-33.7) 07/25/19 08:15 MCHC 33.1 g/dl (32.0-35.9) 07/25/19 08:15 RDW 13.5 % (11.9-15.9) 07/25/19 08:15 Plt Count 212 K/MM3 (134-434) 07/25/19 08:15 MPV 7.8 fl (7.5-11.1) 07/25/19 08:15 Sodium 141 mmol/L (136-145) 07/25/19 08:15 Potassium 4.3 mmol/L (3.5-5.1) 07/25/19 08:15 Chloride 106 mmol/L (98-107) 07/25/19 08:15 Carbon Dioxide 30 mmol/L (21-32) 07/25/19 08:15 Anion Gap 5 MMOL/L (8-16) L 07/25/19 08:15 BUN 12.8 mg/dL (7-18) 07/25/19 08:15 Creatinine 1.1 mg/dL (0.55-1.3) 07/25/19 08:15 Est GFR (CKD-EPI)AfAm 87.74 07/25/19 08:15 Est GFR (CKD-EPI)NonAf 75.70 07/25/19 08:15 Random Glucose 102 mg/dL (74-106) 07/25/19 08:15 Calcium 8.5 mg/dL (8.5-10.1) 07/25/19 08:15 Total Bilirubin 0.3 mg/dL (0.2-1) 07/25/19 08:15 AST 44 U/L (15-37) H 07/25/19 08:15 ALT 32 U/L (13-61) 07/25/19 08:15 Alkaline Phosphatase 161 U/L (45-117) H 07/25/19 08:15 Total Protein 6.4 g/dl (6.4-8.2) 07/25/19 08:15 Albumin 3.0 g/dl (3.4-5.0) L 07/25/19 08:15 lab noted Assessment: 07/25/19 10:41 opiate withdrawal sx Plan: continue methadone detox regimen
[2019-07-25] MEDS: NICOTINE 21 MG/24 HOURS TOPICAL PATCH TD SCH (10:58)
[2019-07-25] MEDS: hydrOXYzine PAMOATE 50 MG CAPSULE (FP) PO PRN (14:23)
[2019-07-25] MEDS: cloNIDine HCL 0.1 MG TABLET PO PRN (17:19)
--- NOTE | 2019-07-25 17:57 | PN ---
[facility] Progress Note Note: Psychiatry Attending's note : Patient is referred by nurse Latanya Villasenor for crisis intervention. Reason : agitation, emotional incontinence, crying spells and disruptive behavior. Met with patient. station agent Leah's note (07/25/19) : appreciated. Mr Sutton complains of feeling overwhelmingly anxious, agitated and frightened. Admits to recent use of K2 + phencyclidine. Restless, bizarre and mildly paranoid. Patient explains that he is " wary of being thrown to the streets from here." He states that he sought admission to [facility] with hope to be sent to rehabilitation. " Someone told me that no bed is available. Now I don't know what to do. I am homeless." Patient is given reassurance. Informed that other facilities will be approached as alternates. Counselor Mounika Van participated in this conference. Feedback provided to the patient. Medication offered (clonazepam). See nurse's note. Patient responded well to this intervention. Abilify 2 mg po hs is added to the regimen (to address racing thoughts and mood dysregulation). Side effects/benefits discussed with patient. Mr Sutton gave his consent (verbal ) to this plan of care. Psychiatry-Liaison will follow progress.
[2019-07-25] MEDS: ARIPiprazole 2 MG TABLET PO SCH (22:19)
[2019-07-25] MEDS: THIAMINE HCL 100 MG TABLET (FP) PO SCH (22:19)
[2019-07-25] MEDS: SUVOREXANT 10 MG TABLET PO PRN (22:20)
[2019-07-26] MEDS: clonazePAM 0.5 MG TABLET PO PRN ×3 (06:07→22:00)
[2019-07-26] MEDS: GABAPENTIN 400 MG CAPSULE (FP) PO SCH ×3 (06:07→21:53)
[2019-07-26] MEDS ORDERED: METHADONE HCL 10 MG TABLET (FOR DETOX USE ONLY) PO ONE (10:00)
[2019-07-26] MEDS: cloNIDine HCL 0.1 MG TABLET PO PRN (10:00)
[2019-07-26] MEDS: NICOTINE 21 MG/24 HOURS TOPICAL PATCH TD SCH (10:00)
[2019-07-26] MEDS: PRENATAL VITAMINS W/ FOLIC ACID TABLET (FP) PO SCH (10:00)
[2019-07-26] MEDS: hydrOXYzine PAMOATE 50 MG CAPSULE (FP) PO PRN ×2 (10:00→19:24)
[2019-07-26] MEDS ORDERED: METHOCARBAMOL 500 MG TABLET PO ONE (10:32)
--- NOTE | 2019-07-26 10:35 | PN ---
BHS COWS - Scale Resting Pulse: 0= [place] 80 or Below Sweatin= Chills/Flushing Restless Observation: 0= Sits Still Pupil Size: 1= Pupils >than Normal Bone or Joint Aches: 2= Severe Diffuse Aches (headache) Runny Nose/ Eye Tearin= Nasal Congestion GI Upset > 30mins: 1= Stomach Cramp Tremor Observation of Outstretched Hands: 2= Slight Tremor Visible Yawning Observation: 1= 1-2x During Session Anxiety or Irritability: 2=Irritable/Anxious Goose Flesh Skin: 0=Smooth Skin COWS Score: 11 S Progress Note (SOAP) Subjective: 53 years old male admitted on 07/24/19 for opiate withdrawal sx management treated with methadone detox regimen body ache encourage robaxin resting on bed ate breakfast tolerate food and fluid well Objective: 07/26/19 10:34 Vital Signs Temperature 100.7 F H 07/26/19 09:14 Pulse Rate 65 07/26/19 09:14 Respiratory Rate 18 07/26/19 09:14 Blood Pressure 106/64 07/26/19 09:14 O2 Sat by Pulse Oximetry (%) Laboratory Last Values WBC 6.0 K/mm3 (4.0-10.0) 07/25/19 08:15 RBC 4.58 M/mm3 (4.00-5.60) 07/25/19 08:15 Hgb 13.9 GM/dL (11.7-16.9) 07/25/19 08:15 Hct 41.9 % (35.4-49) 07/25/19 08:15 MCV 91.5 fl (80-96) 07/25/19 08:15 MCH 30.3 pg (25.7-33.7) 07/25/19 08:15 MCHC 33.1 g/dl (32.0-35.9) 07/25/19 08:15 RDW 13.5 % (11.9-15.9) 07/25/19 08:15 Plt Count 212 K/MM3 (134-434) 07/25/19 08:15 MPV 7.8 fl (7.5-11.1) 07/25/19 08:15 Sodium 141 mmol/L (136-145) 07/25/19 08:15 Potassium 4.3 mmol/L (3.5-5.1) 07/25/19 08:15 Chloride 106 mmol/L (98-107) 07/25/19 08:15 Carbon Dioxide 30 mmol/L (21-32) 07/25/19 08:15 Anion Gap 5 MMOL/L (8-16) L 07/25/19 08:15 BUN 12.8 mg/dL (7-18) 07/25/19 08:15 Creatinine 1.1 mg/dL (0.55-1.3) 07/25/19 08:15 Est GFR (CKD-EPI)AfAm 87.74 07/25/19 08:15 Est GFR (CKD-EPI)NonAf 75.70 07/25/19 08:15 Random Glucose 102 mg/dL (74-106) 07/25/19 08:15 Calcium 8.5 mg/dL (8.5-10.1) 07/25/19 08:15 Total Bilirubin 0.3 mg/dL (0.2-1) 07/25/19 08:15 AST 44 U/L (15-37) H 07/25/19 08:15 ALT 32 U/L (13-61) 07/25/19 08:15 Alkaline Phosphatase 161 U/L (45-117) H 07/25/19 08:15 Total Protein 6.4 g/dl (6.4-8.2) 07/25/19 08:15 Albumin 3.0 g/dl (3.4-5.0) L 07/25/19 08:15 RPR Titer Nonreactive (NONREACTIVE) 07/25/19 08:15 lab noted Assessment: 07/26/19 10:34 opiate withdrawal sxs Plan: continue methadone detox regimen
[2019-07-26] MEDS: ARIPiprazole 2 MG TABLET PO SCH (21:51)
[2019-07-26] MEDS: MELATONIN 5 MG TABLETS PO PRN (21:52)
[2019-07-26] MEDS: THIAMINE HCL 100 MG TABLET (FP) PO SCH (21:54)
[2019-07-26] MEDS: METHOCARBAMOL 500 MG TABLET PO PRN (21:56)
[2019-07-26] MEDS: SUVOREXANT 10 MG TABLET PO PRN (21:58)
[2019-07-27] MEDS: GABAPENTIN 400 MG CAPSULE (FP) PO SCH (05:19)
[2019-07-27] MEDS: METHOCARBAMOL 500 MG TABLET PO PRN (05:21)
[2019-07-27] MEDS: clonazePAM 0.5 MG TABLET PO PRN ×2 (05:21→10:18)
[2019-07-27] MEDS: hydrOXYzine PAMOATE 50 MG CAPSULE (FP) PO PRN (06:43)
[2019-07-27] MEDS ORDERED: METHADONE HCL 10 MG TABLET (FOR DETOX USE ONLY) ONE (08:54)
[2019-07-27] MEDS ORDERED: METHADONE HCL 5 MG TABLET (FOR DETOX USE ONLY) ONE (08:55)
[2019-07-27 09:23] VITALS: BP 99/64; PULSE 76; TEMP 98.1
[2019-07-27] MEDS ORDERED: METHADONE (DETOX) 10 MG, METHADONE (DETOX) 5 MG PO ONE (10:00)
[2019-07-27] MEDS: PRENATAL VITAMINS W/ FOLIC ACID TABLET (FP) PO SCH (10:16)
[2019-07-27] MEDS: NICOTINE 21 MG/24 HOURS TOPICAL PATCH TD SCH (10:17)
--- NOTE | 2019-07-27 10:19 | PN ---
BHS COWS - Scale Resting Pulse: 0= [place] 80 or Below Sweatin= Chills/Flushing Restless Observation: 0= Sits Still Pupil Size: 1= Pupils >than Normal Bone or Joint Aches: 1= Mild Discomfort Runny Nose/ Eye Tearin= Nasal Congestion GI Upset > 30mins: 1= Stomach Cramp Tremor Observation of Outstretched Hands: 2= Slight Tremor Visible Yawning Observation: 1= 1-2x During Session Anxiety or Irritability: 2=Irritable/Anxious Goose Flesh Skin: 0=Smooth Skin COWS Score: 10 S Progress Note (SOAP) Subjective: 33 years old male admitted on 07/24/19 for opiate withdrawal sx management treated with methadone detox regimen patient tolerated well discuss medication assisted treatment program 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 Objective: 07/27/19 10:18 Vital Signs Temperature 98.1 F 07/27/19 09:22 Pulse Rate 76 07/27/19 09:22 Respiratory Rate 18 07/27/19 09:22 Blood Pressure 99/64 07/27/19 09:22 O2 Sat by Pulse Oximetry (%) Laboratory Last Values WBC 6.0 K/mm3 (4.0-10.0) 07/25/19 08:15 RBC 4.58 M/mm3 (4.00-5.60) 07/25/19 08:15 Hgb 13.9 GM/dL (11.7-16.9) 07/25/19 08:15 Hct 41.9 % (35.4-49) 07/25/19 08:15 MCV 91.5 fl (80-96) 07/25/19 08:15 MCH 30.3 pg (25.7-33.7) 07/25/19 08:15 MCHC 33.1 g/dl (32.0-35.9) 07/25/19 08:15 RDW 13.5 % (11.9-15.9) 07/25/19 08:15 Plt Count 212 K/MM3 (134-434) 07/25/19 08:15 MPV 7.8 fl (7.5-11.1) 07/25/19 08:15 Sodium 141 mmol/L (136-145) 07/25/19 08:15 Potassium 4.3 mmol/L (3.5-5.1) 07/25/19 08:15 Chloride 106 mmol/L (98-107) 07/25/19 08:15 Carbon Dioxide 30 mmol/L (21-32) 07/25/19 08:15 Anion Gap 5 MMOL/L (8-16) L 07/25/19 08:15 BUN 12.8 mg/dL (7-18) 07/25/19 08:15 Creatinine 1.1 mg/dL (0.55-1.3) 07/25/19 08:15 Est GFR (CKD-EPI)AfAm 87.74 07/25/19 08:15 Est GFR (CKD-EPI)NonAf 75.70 07/25/19 08:15 Random Glucose 102 mg/dL (74-106) 07/25/19 08:15 Calcium 8.5 mg/dL (8.5-10.1) 07/25/19 08:15 Total Bilirubin 0.3 mg/dL (0.2-1) 07/25/19 08:15 AST 44 U/L (15-37) H 07/25/19 08:15 ALT 32 U/L (13-61) 07/25/19 08:15 Alkaline Phosphatase 161 U/L (45-117) H 07/25/19 08:15 Total Protein 6.4 g/dl (6.4-8.2) 07/25/19 08:15 Albumin 3.0 g/dl (3.4-5.0) L 07/25/19 08:15 RPR Titer Nonreactive (NONREACTIVE) 07/25/19 08:15 lab noted Assessment: 07/27/19 10:18 opiate withdrawal sx Plan: continue methadone detox regimen
--- NOTE | 2019-07-27 10:51 | PN ---
Psychiatric Progress Note Vital Signs: Vital Signs Period Temp Pulse Resp BP Sys/Cardenas Pulse Ox Last 24 Hr 97.7 F-99.1 F 58-76 16-18 89-104/51-69 Date of Session: 07/27/19 Chief Complaint:: " I'm nervous and sometimes feel things touching my head." HPI: Patient admitted to for PCP dependence. ROS: Patient is alert, coherent + Oriented X2. Patient also presents as anxious. Current Medications: Active Medications Generic Name Dose Route Start Last Admin Trade Name Freq PRN Reason Stop Dose Admin Acetaminophen 650 mg 07/24/19 16:04 Tylenol - PO Q6H PRN PAIN LEVEL 4 - 6 Acetaminophen 650 mg 07/24/19 16:04 Tylenol - PO Q6H PRN FEVER Al Hydroxide/Mg Hydroxide 30 ml 07/24/19 16:04 Mylanta Oral Suspension - PO Q6H PRN DYSPEPSIA Albuterol Sulfate 2 puff 07/24/19 16:06 Ventolin Hfa Inhaler - IH QID PRN ASTHMA Aripiprazole 2 mg 07/25/19 22:00 07/26/19 21:51 Abilify PO 2 mg HS MARY Administration Bismuth Subsalicylate 524 mg 07/24/19 16:04 Pepto-Bismol - PO Q1H PRN DIARRHEA Clonazepam 0.5 mg 07/24/19 16:04 07/27/19 10:18 Klonopin - PO 07/27/19 16:03 0.5 mg Q6H PRN Administration Withdrawal Symptoms Eucalyptus/Menthol/Phenol/Sorbitol 1 each 07/24/19 16:04 Cepastat Lozenge - MM 07/30/19 16:04 Q4H PRN SORE THROAT Gabapentin 400 mg 07/24/19 17:00 07/27/19 05:19 Neurontin - PO 400 mg TID MARY Administration Hydroxyzine Pamoate 50 mg 07/25/19 10:01 07/27/19 06:43 Vistaril - PO 07/30/19 16:04 50 mg Q6H PRN Administration For Anxiety Ibuprofen 400 mg 07/24/19 16:04 Motrin - PO Q6H PRN PAIN LEVEL 1 - 3 Magnesium Citrate 300 ml 07/24/19 16:04 Citroma - PO Q48H PRN CONSTIPATION Magnesium Hydroxide 30 ml 07/24/19 16:04 Milk Of Magnesia - PO PRN PRN CONSTIPATION Melatonin 5 mg 07/24/19 16:04 07/26/19 21:52 Melatonin PO 5 mg HS PRN Administration INSOMNIA Methadone HCl 5 mg 07/29/19 06:00 Dolophine - PO 07/29/19 06:01 ONCE@0600 ONE Methadone HCl 10 mg 07/28/19 10:00 Dolophine - PO 07/28/19 10:01 ONCE ONE Methocarbamol 500 mg 07/24/19 16:04 07/27/19 05:21 Robaxin - PO 07/30/19 16:04 500 mg Q6H PRN Administration MUSCLE SPASMS Nicotine 21 mg 07/25/19 10:00 07/27/19 10:17 Nicoderm Patch - TD Not Given DAILY MARY Nicotine Polacrilex 2 mg 07/24/19 16:04 07/26/19 10:02 Nicorette Gum - BUC 2 mg Q2H PRN Administration NICOTINE REPLACEMENT RX Ondansetron HCl 4 mg 07/24/19 16:04 07/27/19 07:37 Zofran Odt - SL 07/30/19 16:05 4 mg Q12H PRN Administration Nausea/Vomiting Multivit/Folic Acid/Iron 1 tab 07/25/19 10:00 07/27/19 10:16 Vitamins (Sjr) - PO 1 tab DAILY MARY Administration Suvorexant 10 mg 07/25/19 10:01 07/26/19 21:58 Belsomra PO 07/28/19 10:00 10 mg HS PRN Administration INSOMNIA Thiamine HCl 100 mg 07/24/19 22:00 07/26/19 21:54 Vitamin B1 - PO Not Given HS MARY Medication(s) Change(s): Yes. Current Side Effect: No Lab tests ordered: No Lab tests reviewed: Yes Provider note:: Patient seen by Dr. Medina on 07/25/19. Dr. Medina note read and appreciated. Today patient presents as anxious and mildy restless. Patient reports feeling cold and sick possibly due to detoxification from illicit substances. Mr. Sutton reports history of K2 and PCP use. As per consultation request patient was complaining of tactile hallucination yesterday. Today, he reports to senior copywriter feeling as if something was touching his head last night and this morning. Patient denies tactile hallucination while speaking to senior copywriter. Patient also denies auditory/visual hallucinations. Patient reports feeling irritable and history of mood dyregulation most likely due to drug use. Patient is visibilty anxious and mildly restless. Mr. Sutton reports having difficulty sleeping and is requesting an increase in sleep medications. Patient reports feeling anxious about being discharged to the street. Stated to senior copywriter, " I do no want to . I want to get better." Patient started on Abilify 2mg on by Dr. Medina. Will d/c Abilify 2mg and Belsomrsa 10mg HS. Will order Abilify 5mg + Belsomra 10mg HS. Benefits and side effects discussed. Verbal consent given. Total face to face time:: 25 Mental Status Exam - Mental Status Exam Alert and Oriented to: Place (Patient stated it was July 28. ), Person Cognitive Function: Fair Patient Appearance: Unkempt Mood: Anxious Affect: Mood Congruent Patient Behavior: Restless Speech Pattern: Clear Voice Loudness: Normal Thought Process: Goal Oriented Thought Disorder: Not Present Hallucinations: Denies (Reports tactile hallucinations last night and this morning but not while speaking to senior copywriter. ) Suicidal Ideation: Denies Homicidal Ideation: Denies Insight/Judgement: Poor Sleep: Poorly Appetite: Fair Muscle strength/Tone: Normal Gait/Station: Normal Psychiatric Treatment Plan - Problem List (1) Cannabis dependence Current Visit: Yes (2) Cocaine dependence Current Visit: Yes Qualifiers: Substance use status: uncomplicated Qualified Code(s): F14.20 - Cocaine dependence, uncomplicated Comment: . (3) Opioid dependence with withdrawal Current Visit: Yes (4) Substance induced mood disorder Current Visit: Yes (5) Substance-induced sleep disorder Current Visit: Yes
--- NOTE | 2019-07-27 12:05 | DS ---
[facility] Detox Discharge Summary Admission Date: 07/24/19 Discharge Date: 07/27/19 - History Present History: Opioid Dependence Additional Comments: 53 years old male admitted on 07/24/19 for opiate withdrawal sx management treated with methadone detox regimen patient insists to leave the detox unit without apparent reason patient is alert oriented x 3 refuses cows refuses exist physical examine - Physical Exam Results Vital Signs: Vital Signs Temperature 98.1 F 07/27/19 09:22 Pulse Rate 76 07/27/19 09:22 Respiratory Rate 18 07/27/19 09:22 Blood Pressure 99/64 07/27/19 09:22 O2 Sat by Pulse Oximetry (%) Pertinent Admission Physical Exam Findings: opiate withdrawal sx Laboratory Last Values WBC 6.0 K/mm3 (4.0-10.0) 07/25/19 08:15 RBC 4.58 M/mm3 (4.00-5.60) 07/25/19 08:15 Hgb 13.9 GM/dL (11.7-16.9) 07/25/19 08:15 Hct 41.9 % (35.4-49) 07/25/19 08:15 MCV 91.5 fl (80-96) 07/25/19 08:15 MCH 30.3 pg (25.7-33.7) 07/25/19 08:15 MCHC 33.1 g/dl (32.0-35.9) 07/25/19 08:15 RDW 13.5 % (11.9-15.9) 07/25/19 08:15 Plt Count 212 K/MM3 (134-434) 07/25/19 08:15 MPV 7.8 fl (7.5-11.1) 07/25/19 08:15 Sodium 141 mmol/L (136-145) 07/25/19 08:15 Potassium 4.3 mmol/L (3.5-5.1) 07/25/19 08:15 Chloride 106 mmol/L (98-107) 07/25/19 08:15 Carbon Dioxide 30 mmol/L (21-32) 07/25/19 08:15 Anion Gap 5 MMOL/L (8-16) L 07/25/19 08:15 BUN 12.8 mg/dL (7-18) 07/25/19 08:15 Creatinine 1.1 mg/dL (0.55-1.3) 07/25/19 08:15 Est GFR (CKD-EPI)AfAm 87.74 07/25/19 08:15 Est GFR (CKD-EPI)NonAf 75.70 07/25/19 08:15 Random Glucose 102 mg/dL (74-106) 07/25/19 08:15 Calcium 8.5 mg/dL (8.5-10.1) 07/25/19 08:15 Total Bilirubin 0.3 mg/dL (0.2-1) 07/25/19 08:15 AST 44 U/L (15-37) H 07/25/19 08:15 ALT 32 U/L (13-61) 07/25/19 08:15 Alkaline Phosphatase 161 U/L (45-117) H 07/25/19 08:15 Total Protein 6.4 g/dl (6.4-8.2) 07/25/19 08:15 Albumin 3.0 g/dl (3.4-5.0) L 07/25/19 08:15 RPR Titer Nonreactive (NONREACTIVE) 07/25/19 08:15 lab noted - Treatment Hospital Course: Detox Protocol Followed, Responded well Patient has Accepted [facility]erral [facility] - Medication Discharge Medications: Ambulatory Orders Albuterol Sulfate Inhaler - [Ventolin HFA Inhaler -] 1 - 2 inh PO QID PRN Gabapentin [Neurontin -] 400 mg PO Q8H 07/24/19 hydrOXYzine PAMOATE [Vistaril -] 50 mg PO QID PRN 07/24/19 Naloxone HCl [Narcan] 4 mg NS ASDIR PRN #1 spray 07/25/19 - Diagnosis (1) Opioid dependence with withdrawal Current Visit: Yes Status: Acute (2) Positive PPD Current Visit: Yes Status: Resolved (3) Substance induced mood disorder Current Visit: Yes Status: Suspected (4) Asthma Current Visit: Yes Status: Chronic Qualifiers: Asthma severity: mild Asthma persistence: intermittent Asthma complication type: uncomplicated Qualified Code(s): J45.20 - Mild intermittent asthma, uncomplicated (5) Nicotine dependence Current Visit: Yes Status: Acute Qualifiers: Nicotine product type: cigarettes Substance use status: in withdrawal Qualified Code(s): F17.213 - Nicotine dependence, cigarettes, with withdrawal - AMA Did Patient Leave Against Medical Advice: Yes
[2019-07-27] MEDS ORDERED: ARIPiprazole 5 MG TABLET (FP) PO SCH (22:00)
[2019-07-27] MEDS ORDERED: SUVOREXANT 15 MG TABLET PO PRN (22:00)
[2019-07-28] MEDS ORDERED: METHADONE HCL 10 MG TABLET (FOR DETOX USE ONLY) PO ONE (10:00)
[2019-07-29] MEDS ORDERED: METHADONE HCL 5 MG TABLET (FOR DETOX USE ONLY) PO ONE (06:00)
== END 2019-07-27 12:25 | disposition left against medical advice (07) | DRG 770 ==
LOC: YASAS 12:59 → Y3N 16:36
PROVIDERS: ADMIT Allergy & Immunology; ATTEND Allergy & Immunology
PROC: HZ2ZZZZ Detoxification Services for Substance Abuse Treatment (ICD-10-PCS; principal; 2019-07-24)
DX: F11.23 Opioid dependence with withdrawal (principal); F10.230 Alcohol dependence with withdrawal, uncomplicated; F14.20 Cocaine dependence, uncomplicated; F12.20 Cannabis dependence, uncomplicated; F17.210 Nicotine dependence, cigarettes, uncomplicated; F19.282 Other psychoactive substance dependence with psychoactive substance-induced sleep disorder; F19.24 Other psychoactive substance dependence with psychoactive substance-induced mood disorder; J45.20 Mild intermittent asthma, uncomplicated; R76.11 Nonspecific reaction to tuberculin skin test without active tuberculosis; Z91.018 Allergy to other foods; Z59.0 Homelessness
CPT/HCPCS: 36415; 71046-TC-FY; 80053; 85027; 86593; J0735; Q0162

== ENCOUNTER 2021-02-25 14:40 | Inpatient (IN) | payer OTHER ==
[2021-02-25 16:10] VITALS: BMI 20.9
[2021-02-25] MEDS ORDERED: NICOTINE POLACRILEX 2 MG GUM BUC PRN (17:21)
[2021-02-25] MEDS ORDERED: BISMUTH SUBSALICYLATE 524 MG/30 ML PO PRN (17:21)
[2021-02-25] MEDS ORDERED: ACETAMINOPHEN 325 MG TABLET (FP) PO PRN (17:21)
[2021-02-25] MEDS ORDERED: MAGNESIUM CITRATE 300 ML BOTTLE PO PRN (17:21)
[2021-02-25] MEDS ORDERED: METHADONE HCL 10 MG TABLET (FOR DETOX USE ONLY) PO ONE (17:21)
[2021-02-25] MEDS ORDERED: ONDANSETRON *ODT* 4 MG TABLET SL PRN (17:21)
[2021-02-25] MEDS ORDERED: MAGNESIUM HYDROX 2400MG/30ML ORAL SUSPENSION 30 ML CUP PO PRN (17:21)
[2021-02-25] MEDS ORDERED: MAG HYDROX/AL HYDROX/SIMETH 30 ML UNIT-DOSE CUP PO PRN (17:21)
[2021-02-25] MEDS ORDERED: MENTHOL/PHENOL 1 EACH UD MM PRN (17:21)
[2021-02-25] MEDS ORDERED: cloNIDine HCL 0.1 MG TABLET PO PRN (17:21)
[2021-02-25] MEDS ORDERED: ALBUTEROL SO4 HFA INHALER IH PRN (17:24)
[2021-02-25] MEDS: hydrOXYzine PAMOATE 25 MG CAPSULE (FP) PO SCH ×2 (21:14→23:02)
[2021-02-25] MEDS: THIAMINE HCL 100 MG TABLET (FP) PO SCH (21:15)
[2021-02-25] MEDS: MELATONIN 5 MG TABLETS PO SCH (21:33)
[2021-02-26] MEDS: hydrOXYzine PAMOATE 25 MG CAPSULE (FP) PO SCH ×5 (06:23→21:06)
[2021-02-26] MEDS ORDERED: METHADONE HCL 10 MG TABLET PO ONE (09:46)
[2021-02-26 09:56] LABS: HEMATOCRIT 44.8 % (35.4-49); HEMOGLOBIN 15.2 GM/dL (11.7-16.9); MEAN PLT VOLUME 7.7 fl (7.5-11.1); PLATELET COUNT 196 K/MM3 (134-434); RBC 4.77 M/mm3 (4.00-5.60); RDW 13.9 % (11.9-15.9); WHITE BLOOD COUNT 4.4 K/mm3 (4.0-10.0)
[2021-02-26 09:58] LABS: CALCIUM 8.8 mg/dL (8.5-10.1)
[2021-02-26 09:59] LABS: ALBUMIN 3.5 g/dl (3.4-5.0); BLOOD UREA NITROGEN 11.8 mg/dL (7-18)
[2021-02-26] MEDS ORDERED: METHADONE 120 MG, METHADONE 20 MG PO ONE (10:00)
[2021-02-26] MEDS ORDERED: METHADONE (DETOX) 20 MG, METHADONE (DETOX) 5 MG PO ONE (10:00)
[2021-02-26 10:04] LABS: BILIRUBIN,TOTAL 0.5 mg/dL (0.2-1); TOT PROT 7.3 g/dl (6.4-8.2)
[2021-02-26] MEDS ORDERED: METHADONE HCL 40 MG DISPERSABLE TABLET ONE (10:08)
[2021-02-26] MEDS: PRENATAL VITAMINS W/ FOLIC ACID TABLET (FP) PO SCH (10:09)
[2021-02-26] MEDS ORDERED: METHADONE HCL 10 MG TABLET ONE (10:09)
[2021-02-26] MEDS: THIAMINE HCL 100 MG TABLET (FP) PO SCH (21:05)
[2021-02-26] MEDS: MELATONIN 5 MG TABLETS PO SCH (21:05)
[2021-02-27] MEDS ORDERED: METHADONE HCL 10 MG TABLET PO SCH (06:00)
[2021-02-27] MEDS ORDERED: METHADONE HCL 40 MG DISPERSABLE TABLET ONE (06:10)
[2021-02-27] MEDS ORDERED: METHADONE HCL 10 MG TABLET ONE (06:10)
[2021-02-27] MEDS: METHADONE 120 MG, METHADONE 20 MG PO SCH (06:13)
[2021-02-27] MEDS: hydrOXYzine PAMOATE 25 MG CAPSULE (FP) PO SCH ×5 (06:13→21:33)
[2021-02-27] MEDS ORDERED: METHADONE HCL 10 MG TABLET (FOR DETOX USE ONLY) PO ONE (10:00)
[2021-02-27] MEDS: PRENATAL VITAMINS W/ FOLIC ACID TABLET (FP) PO SCH (10:59)
[2021-02-27] MEDS: GABAPENTIN 400 MG CAPSULE PO SCH ×2 (13:45→21:33)
[2021-02-27] MEDS: THIAMINE HCL 100 MG TABLET (FP) PO SCH (21:34)
[2021-02-27] MEDS: SUVOREXANT 10 MG TABLET PO PRN (21:34)
[2021-02-27] MEDS: QUEtiapine FUMARATE 100 MG TABLET (FP) PO SCH (21:34)
[2021-02-28] MEDS ORDERED: METHADONE HCL 40 MG DISPERSABLE TABLET ONE (03:09)
[2021-02-28] MEDS ORDERED: METHADONE HCL 10 MG TABLET ONE (03:09)
[2021-02-28] MEDS: GABAPENTIN 400 MG CAPSULE PO SCH ×3 (06:25→21:01)
[2021-02-28] MEDS: METHADONE 120 MG, METHADONE 20 MG PO SCH (06:26)
[2021-02-28] MEDS: hydrOXYzine PAMOATE 25 MG CAPSULE (FP) PO SCH ×5 (06:28→21:02)
[2021-02-28] MEDS: PRENATAL VITAMINS W/ FOLIC ACID TABLET (FP) PO SCH (09:55)
[2021-02-28] MEDS ORDERED: METHADONE (DETOX) 10 MG, METHADONE (DETOX) 5 MG PO ONE (10:00)
[2021-02-28] MEDS: METHOCARBAMOL 500 MG TABLET PO PRN ×2 (14:19→21:02)
[2021-02-28] MEDS: THIAMINE HCL 100 MG TABLET (FP) PO SCH (21:01)
[2021-02-28] MEDS: QUEtiapine FUMARATE 100 MG TABLET (FP) PO SCH (21:01)
[2021-02-28] MEDS: ACETAMINOPHEN 325 MG TABLET (FP) PO PRN (21:03)
[2021-02-28] MEDS: SUVOREXANT 10 MG TABLET PO PRN (21:05)
[2021-03-01] MEDS ORDERED: METHADONE HCL 10 MG TABLET ONE (03:22)
[2021-03-01] MEDS ORDERED: METHADONE HCL 40 MG DISPERSABLE TABLET ONE (03:22)
[2021-03-01] MEDS: hydrOXYzine PAMOATE 25 MG CAPSULE (FP) PO SCH ×5 (06:55→21:43)
[2021-03-01] MEDS: METHADONE 120 MG, METHADONE 20 MG PO SCH (06:55)
[2021-03-01] MEDS: GABAPENTIN 400 MG CAPSULE PO SCH ×3 (06:56→21:42)
[2021-03-01] MEDS ORDERED: METHADONE HCL 10 MG TABLET (FOR DETOX USE ONLY) PO ONE (10:00)
[2021-03-01] MEDS: PRENATAL VITAMINS W/ FOLIC ACID TABLET (FP) PO SCH (10:04)
[2021-03-01] MEDS: QUEtiapine FUMARATE 100 MG TABLET (FP) PO SCH (21:43)
[2021-03-01] MEDS: SUVOREXANT 10 MG TABLET PO PRN (21:43)
[2021-03-01] MEDS: THIAMINE HCL 100 MG TABLET (FP) PO SCH (21:43)
[2021-03-02] MEDS ORDERED: METHADONE HCL 40 MG DISPERSABLE TABLET ONE (04:03)
[2021-03-02] MEDS ORDERED: METHADONE HCL 10 MG TABLET ONE (04:04)
[2021-03-02] MEDS ORDERED: METHADONE HCL 5 MG TABLET (FOR DETOX USE ONLY) PO ONE (06:00)
[2021-03-02] MEDS: GABAPENTIN 400 MG CAPSULE PO SCH ×3 (07:00→21:15)
[2021-03-02] MEDS: hydrOXYzine PAMOATE 25 MG CAPSULE (FP) PO SCH ×5 (07:00→21:15)
[2021-03-02] MEDS: METHADONE 120 MG, METHADONE 20 MG PO SCH (07:00)
[2021-03-02 08:07] LABS: SARS-CoV-2 NAA Not Detected (Not Detected)
[2021-03-02] MEDS ORDERED: MASKS NR ONE ×2 (08:17→16:04)
[2021-03-02] MEDS: PRENATAL VITAMINS W/ FOLIC ACID TABLET (FP) PO SCH (09:38)
[2021-03-02] MEDS ORDERED: SUVOREXANT 10 MG TABLET PO ONE (21:14)
[2021-03-02] MEDS: SUVOREXANT 5 MG, SUVOREXANT 10 MG PO PRN (21:14)
[2021-03-02] MEDS ORDERED: SUVOREXANT 5 MG TABLET ONE (21:14)
[2021-03-02] MEDS: QUEtiapine FUMARATE 100 MG TABLET (FP) PO SCH (21:15)
[2021-03-02] MEDS: THIAMINE HCL 100 MG TABLET (FP) PO SCH (21:15)
[2021-03-02] MEDS ORDERED: SUVOREXANT 10 MG TABLET PO PRN (22:00)
[2021-03-03] MEDS ORDERED: METHADONE HCL 40 MG DISPERSABLE TABLET ONE (03:04)
[2021-03-03] MEDS ORDERED: METHADONE HCL 10 MG TABLET ONE (03:05)
[2021-03-03] MEDS: GABAPENTIN 400 MG CAPSULE PO SCH ×3 (06:13→21:23)
[2021-03-03] MEDS: METHADONE 120 MG, METHADONE 20 MG PO SCH (06:13)
[2021-03-03] MEDS: hydrOXYzine PAMOATE 25 MG CAPSULE (FP) PO SCH ×3 (06:13→13:17)
[2021-03-03] MEDS: PRENATAL VITAMINS W/ FOLIC ACID TABLET (FP) PO SCH (09:29)
[2021-03-03] MEDS: METHOCARBAMOL 500 MG TABLET PO PRN (13:15)
[2021-03-03] MEDS: QUEtiapine FUMARATE 100 MG TABLET (FP) PO SCH (21:23)
[2021-03-03] MEDS: THIAMINE HCL 100 MG TABLET (FP) PO SCH (21:23)
[2021-03-03] MEDS: SUVOREXANT 5 MG, SUVOREXANT 10 MG PO PRN (21:25)
[2021-03-03] MEDS ORDERED: SUVOREXANT 10 MG TABLET PO ONE (21:25)
[2021-03-03] MEDS ORDERED: SUVOREXANT 5 MG TABLET ONE (21:26)
[2021-03-04] MEDS ORDERED: METHADONE HCL 10 MG TABLET ONE (03:15)
[2021-03-04] MEDS ORDERED: METHADONE HCL 40 MG DISPERSABLE TABLET ONE (03:15)
[2021-03-04] MEDS: METHADONE 120 MG, METHADONE 20 MG PO SCH (06:21)
[2021-03-04] MEDS: GABAPENTIN 400 MG CAPSULE PO SCH ×3 (06:21→21:10)
[2021-03-04] MEDS: PRENATAL VITAMINS W/ FOLIC ACID TABLET (FP) PO SCH (10:19)
[2021-03-04] MEDS: QUEtiapine FUMARATE 100 MG TABLET (FP) PO SCH (21:10)
[2021-03-04] MEDS: THIAMINE HCL 100 MG TABLET (FP) PO SCH (21:10)
[2021-03-04] MEDS ORDERED: SUVOREXANT 5 MG TABLET ONE (21:11)
[2021-03-04] MEDS: SUVOREXANT 5 MG, SUVOREXANT 10 MG PO PRN (21:11)
[2021-03-04] MEDS ORDERED: SUVOREXANT 10 MG TABLET PO ONE (21:11)
[2021-03-04] MEDS: IBUPROFEN 400 MG TABLET (FP) PO PRN (21:12)
[2021-03-05] MEDS ORDERED: METHADONE HCL 10 MG TABLET ONE (03:06)
[2021-03-05] MEDS ORDERED: METHADONE HCL 40 MG DISPERSABLE TABLET ONE (03:06)
[2021-03-05] MEDS: METHADONE 120 MG, METHADONE 20 MG PO SCH (06:20)
[2021-03-05] MEDS: GABAPENTIN 400 MG CAPSULE PO SCH ×3 (06:20→21:02)
[2021-03-05] MEDS ORDERED: SUVOREXANT 15 MG TABLET PO PRN (08:00)
[2021-03-05] MEDS: PRENATAL VITAMINS W/ FOLIC ACID TABLET (FP) PO SCH (09:55)
[2021-03-05] MEDS ORDERED: hydrOXYzine PAMOATE 25 MG CAPSULE (FP) PO PRN (11:18)
[2021-03-05] MEDS: IBUPROFEN 400 MG TABLET (FP) PO PRN (11:46)
[2021-03-05] MEDS: hydrOXYzine PAMOATE 50 MG CAPSULE (FP) PO PRN (14:17)
[2021-03-05] MEDS: THIAMINE HCL 100 MG TABLET (FP) PO SCH (21:02)
[2021-03-05] MEDS: QUEtiapine FUMARATE 100 MG TABLET (FP) PO SCH (21:02)
[2021-03-05] MEDS: SUVOREXANT 20 MG TABLET PO PRN (21:03)
[2021-03-06] MEDS ORDERED: METHADONE HCL 10 MG TABLET ONE (05:15)
[2021-03-06] MEDS ORDERED: METHADONE HCL 40 MG DISPERSABLE TABLET ONE (05:15)
[2021-03-06] MEDS: GABAPENTIN 400 MG CAPSULE PO SCH ×3 (06:30→21:11)
[2021-03-06] MEDS: METHADONE 120 MG, METHADONE 20 MG PO SCH (06:30)
[2021-03-06] MEDS: PRENATAL VITAMINS W/ FOLIC ACID TABLET (FP) PO SCH (10:09)
[2021-03-06] MEDS: hydrOXYzine PAMOATE 50 MG CAPSULE (FP) PO PRN (10:10)
[2021-03-06] MEDS: IBUPROFEN 400 MG TABLET (FP) PO PRN (11:35)
[2021-03-06] MEDS: THIAMINE HCL 100 MG TABLET (FP) PO SCH (21:10)
[2021-03-06] MEDS: SUVOREXANT 20 MG TABLET PO PRN (21:10)
[2021-03-06] MEDS: QUEtiapine FUMARATE 100 MG TABLET (FP) PO SCH (21:11)
[2021-03-07] MEDS ORDERED: METHADONE HCL 40 MG DISPERSABLE TABLET ONE (03:08)
[2021-03-07] MEDS ORDERED: METHADONE HCL 10 MG TABLET ONE (03:08)
[2021-03-07] MEDS: GABAPENTIN 400 MG CAPSULE PO SCH ×3 (06:24→21:25)
[2021-03-07] MEDS: METHADONE 120 MG, METHADONE 20 MG PO SCH (06:24)
[2021-03-07] MEDS: PRENATAL VITAMINS W/ FOLIC ACID TABLET (FP) PO SCH (10:05)
[2021-03-07] MEDS: hydrOXYzine PAMOATE 50 MG CAPSULE (FP) PO PRN (10:05)
[2021-03-07] MEDS: IBUPROFEN 400 MG TABLET (FP) PO PRN (10:06)
[2021-03-07] MEDS: ACETAMINOPHEN 325 MG TABLET (FP) PO PRN (18:23)
[2021-03-07] MEDS: THIAMINE HCL 100 MG TABLET (FP) PO SCH (21:24)
[2021-03-07] MEDS: SUVOREXANT 20 MG TABLET PO PRN (21:25)
[2021-03-07] MEDS: QUEtiapine FUMARATE 100 MG TABLET (FP) PO SCH (21:25)
[2021-03-08] MEDS ORDERED: METHADONE HCL 10 MG TABLET ONE (03:11)
[2021-03-08] MEDS ORDERED: METHADONE HCL 40 MG DISPERSABLE TABLET ONE (03:11)
[2021-03-08] MEDS: METHADONE 120 MG, METHADONE 20 MG PO SCH (06:47)
[2021-03-08] MEDS: GABAPENTIN 400 MG CAPSULE PO SCH ×3 (06:48→21:57)
[2021-03-08] MEDS: PRENATAL VITAMINS W/ FOLIC ACID TABLET (FP) PO SCH (10:28)
[2021-03-08] MEDS: hydrOXYzine PAMOATE 50 MG CAPSULE (FP) PO PRN (14:05)
[2021-03-08] MEDS: THIAMINE HCL 100 MG TABLET (FP) PO SCH (21:57)
[2021-03-08] MEDS: QUEtiapine FUMARATE 100 MG TABLET (FP) PO SCH (21:57)
[2021-03-08] MEDS: SUVOREXANT 20 MG TABLET PO PRN (21:58)
[2021-03-09] MEDS ORDERED: METHADONE HCL 10 MG TABLET ONE (03:15)
[2021-03-09] MEDS ORDERED: METHADONE HCL 40 MG DISPERSABLE TABLET ONE (03:15)
[2021-03-09] MEDS ORDERED: MASKS NR ONE (06:45)
[2021-03-09] MEDS: METHADONE 120 MG, METHADONE 20 MG PO SCH (06:46)
[2021-03-09] MEDS: GABAPENTIN 400 MG CAPSULE PO SCH ×3 (06:46→21:30)
[2021-03-09] MEDS: IBUPROFEN 400 MG TABLET (FP) PO PRN (09:42)
[2021-03-09] MEDS: PRENATAL VITAMINS W/ FOLIC ACID TABLET (FP) PO SCH (09:42)
[2021-03-09] MEDS ORDERED: QUEtiapine FUMARATE 50 MG TABLET ONE (19:06)
[2021-03-09] MEDS: THIAMINE HCL 100 MG TABLET (FP) PO SCH (21:30)
[2021-03-09] MEDS: QUEtiapine FUMARATE 100 MG TABLET (FP) PO SCH (21:30)
[2021-03-09] MEDS: SUVOREXANT 20 MG TABLET PO PRN (21:31)
[2021-03-10] MEDS ORDERED: METHADONE HCL 40 MG DISPERSABLE TABLET ONE (03:03)
[2021-03-10] MEDS ORDERED: METHADONE HCL 10 MG TABLET ONE (03:04)
[2021-03-10] MEDS: GABAPENTIN 400 MG CAPSULE PO SCH ×3 (06:42→21:19)
[2021-03-10] MEDS: METHADONE 120 MG, METHADONE 20 MG PO SCH (06:42)
[2021-03-10] MEDS: PRENATAL VITAMINS W/ FOLIC ACID TABLET (FP) PO SCH (09:51)
[2021-03-10] MEDS: IBUPROFEN 400 MG TABLET (FP) PO PRN ×2 (09:51→18:51)
[2021-03-10] MEDS: hydrOXYzine PAMOATE 50 MG CAPSULE (FP) PO PRN (13:58)
[2021-03-10] MEDS: QUEtiapine FUMARATE 100 MG TABLET (FP) PO SCH (21:19)
[2021-03-10] MEDS: THIAMINE HCL 100 MG TABLET (FP) PO SCH (21:19)
[2021-03-10] MEDS ORDERED: SUVOREXANT 20 MG TABLET PO PRN (22:00)
[2021-03-11] MEDS ORDERED: METHADONE HCL 10 MG TABLET ONE (03:06)
[2021-03-11] MEDS ORDERED: METHADONE HCL 40 MG DISPERSABLE TABLET ONE (03:06)
[2021-03-11] MEDS: GABAPENTIN 400 MG CAPSULE PO SCH (06:23)
[2021-03-11] MEDS: METHADONE 120 MG, METHADONE 20 MG PO SCH (06:23)
[2021-03-11 06:55] VITALS: BP 114/65; PULSE 80; TEMP 97.7
== END 2021-03-11 08:51 | disposition home or self-care (01) | DRG 772 ==
LOC: YASAS 14:40 → Y3N 17:20 → Y3W 19:57
PROVIDERS: ADMIT Allergy & Immunology; ATTEND Allergy & Immunology
PROC: HZ42ZZZ Group Counseling for Substance Abuse Treatment, Cognitive-Behavioral (ICD-10-PCS; principal; 2021-02-25)
DX: F11.20 Opioid dependence, uncomplicated (principal); F14.20 Cocaine dependence, uncomplicated; F12.20 Cannabis dependence, uncomplicated; F19.20 Other psychoactive substance dependence, uncomplicated; F17.210 Nicotine dependence, cigarettes, uncomplicated; F19.282 Other psychoactive substance dependence with psychoactive substance-induced sleep disorder; F19.24 Other psychoactive substance dependence with psychoactive substance-induced mood disorder; M54.5 Low back pain; G89.29 Other chronic pain; R76.11 Nonspecific reaction to tuberculin skin test without active tuberculosis; Z91.81 History of falling; Z98.1 Arthrodesis status; Z98.890 Other specified postprocedural states
CPT/HCPCS: 36415; 80053; 85027; 86780; C9803; Q0162; U0003; U0005

== ENCOUNTER 2021-10-23 18:17 | Inpatient (IN) | payer OTHER ==
[2021-10-23 20:02] VITALS: BMI 20.2
[2021-10-23] MEDS ORDERED: P-EPHED 60MG/TRIPROLIDI 2.5MG TABLET PO PRN (20:27)
[2021-10-23] MEDS ORDERED: LOPERAMIDE HCL 2 MG CAPSULE PO PRN (20:27)
[2021-10-23] MEDS ORDERED: MAG HYDROX/AL HYDROX/SIMETH 30 ML UNIT-DOSE CUP PO PRN (20:27)
[2021-10-23] MEDS ORDERED: IBUPROFEN 400 MG TABLET (FP) PO PRN (20:27)
[2021-10-23] MEDS ORDERED: hydrOXYzine PAMOATE 25 MG CAPSULE (FP) PO PRN (20:27)
[2021-10-23] MEDS ORDERED: MAGNESIUM HYDROX 2400MG/30ML ORAL SUSPENSION 30 ML CUP PO PRN (20:27)
[2021-10-23] MEDS ORDERED: guaiFENesin 200 MG/10 ML 10 ML UNIT-DOSE CUPS PO PRN (20:27)
[2021-10-23] MEDS ORDERED: ACETAMINOPHEN 325 MG TABLET (FP) PO PRN (20:27)
[2021-10-23] MEDS ORDERED: NALOXONE (NARCAN) HCL 4 MG/0.1 ML SPRAY NS PRN (20:27)
[2021-10-23] MEDS ORDERED: NICOTINE 10 MG CARTRIDGE (INHALER) IH PRN (20:27)
[2021-10-23] MEDS ORDERED: MAGNESIUM CITRATE 300 ML BOTTLE PO PRN (20:27)
[2021-10-23] MEDS ORDERED: NALOXONE HCL 0.4 MG/ML VIAL IM PRN (20:27)
[2021-10-23] MEDS: THIAMINE HCL 100 MG TABLET (FP) PO SCH (21:57)
[2021-10-23] MEDS: MELATONIN 5 MG TABLETS PO SCH (21:57)
[2021-10-24] MEDS ORDERED: ALBUTEROL SO4 HFA INHALER IH PRN (07:12)
[2021-10-24] MEDS ORDERED: methaDONE HCL 10 MG TABLET PO SCH ×2 (08:45→09:15)
[2021-10-24] MEDS ORDERED: methaDONE HCL 40 MG DISPERSABLE TABLET ONE ×2 (08:48→09:24)
[2021-10-24] MEDS ORDERED: methaDONE HCL 10 MG TABLET ONE ×3 (08:49→16:42)
[2021-10-24] MEDS: PRENATAL VITAMINS W/ FOLIC ACID TABLET (FP) PO SCH (09:31)
[2021-10-24] MEDS: NICOTINE 14 MG/24 HOURS TOPICAL PATCH TD SCH (10:19)
[2021-10-24 10:27] LABS: HEMOGLOBIN 13.4 GM/dL (11.7-16.9); MCH 30.5 pg (25.7-33.7); MCHC 33.4 g/dl (32.0-35.9); MEAN CELL VOLUME 91.3 fl (80-96); MEAN PLT VOLUME 7.4 fl (7.5-11.1); PLATELET COUNT 225 10^3/uL (134-434); RBC 4.38 M/mm3 (4.00-5.60); RDW 13.9 % (11.9-15.9); WHITE BLOOD COUNT 4.1 K/mm3 (4.0-10.0)
[2021-10-24 10:38] LABS: CALCIUM 8.7 mg/dL (8.5-10.1)
[2021-10-24 10:44] LABS: BILIRUBIN,TOTAL 0.4 mg/dL (0.2-1); TOT PROT 6.6 g/dl (6.4-8.2)
[2021-10-24 12:05] LABS: SYPHILIS W/ RPR CONF NON-REACTIVE (NONREACTIVE)
[2021-10-24 14:51] LABS: URINE APPEARANCE CLEAR; URINE BILIRUBIN NEGATIVE (NEGATIVE); URINE COLOR YELLOW; URINE GLUCOSE (UA) NEGATIVE (NEGATIVE); URINE KETONE NEGATIVE (NEGATIVE); URINE LEUK ESTERASE NEGATIVE (NEGATIVE); URINE NITRITE NEGATIVE (NEGATIVE); URINE PROTEIN NEGATIVE (NEGATIVE)
[2021-10-24] MEDS ORDERED: methaDONE HCL 10 MG TABLET (FOR DETOX USE ONLY) PO ONE (16:00)
[2021-10-24] MEDS ORDERED: methaDONE HCL 10 MG TABLET PO ONE (16:23)
[2021-10-24] MEDS: MELATONIN 5 MG TABLETS PO SCH (21:18)
[2021-10-24] MEDS: THIAMINE HCL 100 MG TABLET (FP) PO SCH (21:18)
[2021-10-25] MEDS ORDERED: methaDONE HCL 40 MG DISPERSABLE TABLET ONE (04:24)
[2021-10-25] MEDS ORDERED: methaDONE HCL 10 MG TABLET ONE (04:24)
[2021-10-25] MEDS ORDERED: methaDONE HCL 10 MG TABLET PO SCH (06:00)
[2021-10-25] MEDS: NICOTINE 14 MG/24 HOURS TOPICAL PATCH TD SCH (09:56)
[2021-10-25] MEDS: PRENATAL VITAMINS W/ FOLIC ACID TABLET (FP) PO SCH (09:56)
[2021-10-25] MEDS: MELATONIN 5 MG TABLETS PO SCH (21:19)
[2021-10-25] MEDS: THIAMINE HCL 100 MG TABLET (FP) PO SCH (21:19)
[2021-10-26 07:05] VITALS: BP 120/56; PULSE 60; TEMP 98.2
[2021-10-26] MEDS: NICOTINE 14 MG/24 HOURS TOPICAL PATCH TD SCH (10:05)
[2021-10-26] MEDS: PRENATAL VITAMINS W/ FOLIC ACID TABLET (FP) PO SCH (10:05)
[2021-10-26] MEDS ORDERED: methaDONE HCL 10 MG TABLET PO ONE (10:07)
[2021-10-26] MEDS ORDERED: methaDONE HCL 40 MG DISPERSABLE TABLET ONE (10:23)
[2021-10-26] MEDS ORDERED: methaDONE HCL 10 MG TABLET ONE (10:24)
== END 2021-10-26 12:30 | disposition left against medical advice (07) | DRG 770 ==
LOC: YASAS 18:17 → Y3W 20:48
PROVIDERS: ADMIT Allergy & Immunology; ATTEND Allergy & Immunology
PROC: HZ42ZZZ Group Counseling for Substance Abuse Treatment, Cognitive-Behavioral (ICD-10-PCS; principal; 2021-10-23)
DX: F11.20 Opioid dependence, uncomplicated (principal); F14.20 Cocaine dependence, uncomplicated; F10.20 Alcohol dependence, uncomplicated; F17.210 Nicotine dependence, cigarettes, uncomplicated; F19.282 Other psychoactive substance dependence with psychoactive substance-induced sleep disorder; F19.24 Other psychoactive substance dependence with psychoactive substance-induced mood disorder; J45.20 Mild intermittent asthma, uncomplicated; M54.50 Low back pain, unspecified; G89.29 Other chronic pain; B18.2 Chronic viral hepatitis C; R00.1 Bradycardia, unspecified; Z86.11 Personal history of tuberculosis; Z59.00 Homelessness unspecified; Z91.018 Allergy to other foods
CPT/HCPCS: 36415; 80053; 81003; 85027; 86780; 86803; 87522; 87811; 93005; 93010; C9803; U0003; U0005